=== PATIENT | male | born 1930 | race Caucasian/White ===

== ENCOUNTER 2017-02-25 11:54 | Emergency (ER) | payer MEDICARE, OTHER ==
[~2017-02-25] VITALS: Ht 172.7 cm; Wt 102.5 kg
[~2017-02-25 11:54] MED LIST: ASPI-612 PO; ATOR10TA60 PO; DILT120C PO; DIPH25TA26 PO; DOXA8TAB59 PO; ERGO500027 PO; GLIM4TAB2 PO; Hydrocodone/Acetaminophen PO; INSU100I13 SQ; INSU100V8 SQ; PIOG15TA2 PO; Sulfamethoxazole/Trimethoprim PO; TRIA1CAP3 PO; WARF2TAB7 PO
[2017-02-25 12:11] VITALS: BP 158/77
--- NOTE | 2017-02-25 12:53 | PHYS DOC ---
Past Medical History Past Medical History: A-Fib, Arrhythmia, Diabetes-Type II, High Cholesterol, Hypertension, Other Additional Past Medical Histor: gout; prostate CA Past Surgical History: Pacemaker, Other Additional Past Surgical Histo: Prostate surgery; right ankle Alcohol Use: None Drug Use: None Adult General Chief Complaint Chief Complaint: OTHER COMPLAINTS [facility] HPI Patient is a 87 year old male presents to the emergency department stating that he was scratched by his dog in his left forearm last night. Patient states that he had problems getting the bleeding stopped due to the fact of being on Coumadin. At the current time the area is not bleeding. There is no redness warmth or tenderness noted. Patient is unsure when his last tetanus immunization occurred. Review of Systems Review of Systems Constitutional: Denies fever or chills [] Eyes: Denies change in visual acuity, redness, or eye pain [] HENT: Denies nasal congestion or sore throat [] Respiratory: Denies cough or shortness of breath [] Cardiovascular: No additional information not addressed in HPI [] GI: Denies abdominal pain, nausea, vomiting, bloody stools or diarrhea [] : Denies dysuria or hematuria [] Musculoskeletal: Denies back pain or joint pain [] Integument: Denies rash or skin lesions patient with skin tear noted to the left forearm Neurologic: Denies headache, focal weakness or sensory changes [] Endocrine: Denies polyuria or polydipsia [] Current Medications Current Medications Current Medications Medications (Trade) Dose Ordered Sig/Rhonda Start Time Stop Time Status Last Admin Dose Admin Diphtheria/ Tetanus/Acell Pertussis (Boostrix) 0.5 ml ONCE ONCE 02/25/17 13:30 02/25/17 13:31 Allergies Allergies Allergies Coded Allergies Type Severity Reaction Last Updated Verified No Known Drug Allergies 08/07/13 No Physical Exam Physical Exam Constitutional: Well developed, well nourished, no acute distress, non-toxic appearance. [] HENT: Normocephalic, atraumatic, bilateral external ears normal, oropharynx moist, no oral exudates, nose normal. [] Eyes: PERRLA, EOMI, conjunctiva normal, no discharge. [] Neck: Normal range of motion, no tenderness, supple, no stridor. [] Cardiovascular:Heart rate regular rhythm, no murmur [] Lungs & Thorax: Bilateral breath sounds clear to auscultation [] Skin: Warm, dry, no erythema, no rash. Patient with a skin tear noted to the left forearm bleeding is currently controlled. Back: No tenderness Extremities: No tenderness, no cyanosis, no clubbing, ROM intact, no edema. [] Neurologic: Alert and oriented X 3, normal motor function, normal sensory function, no focal deficits noted. [] Psychologic: Affect normal, judgement normal, mood normal. [] Current Patient Data Vital Signs Vital Signs Date Time Temp Pulse Resp B/P (MAP) Pulse Ox O2 Delivery O2 Flow Rate FiO2 02/25/17 12:11 98.1 71 16 94 Room Air 98.1 Lab Values Laboratory Tests Test 02/25/17 12:48 Prothrombin Time 25.1 SEC (11.7-14.0) H Prothrombin Time INR 2.5 (0.8-1.1) H EKG EKG [] Radiology/Procedures Radiology/Procedures [] Course & Med Decision Making Course & Med Decision Making Pertinent Labs and Imaging studies reviewed. (See chart for details) INR was 2.5, PTT was 25.1. Patient will be discharged home with these results and recommendations to call his primary care physician. Patient will be encouraged to keep the left forearm clean and dry clean it twice daily soap and water and apply antibiotic ointment. Patient was also be encouraged to watch for signs and symptoms of infection: Redness, warmth, tenderness or any yellow/ greenish transient become from the site physician occur he needs to follow-up primary care physician immediately. Patient agrees with discharge instructions treatment regimens and follow-up recommendations. [] Dragon Disclaimer Dragon Disclaimer This electronic medical record was generated, in whole or in part, using a voice recognition dictation system. Departure Departure Impression: Primary Impression: Skin abrasion Disposition: HOME, SELF-CARE Condition: STABLE Referrals: JESSICA GONZALEZ MD (PCP) Patient Instructions: Abrasion, [id number] Additional Instructions: Keep the area clean and dry. Clean the site twice day with soap and water and apply antibiotic ointment to the area. Watch for signs and symptoms of infection: Redness, warmth, tenderness or any yellow/greenish drainage. If this should occur follow-up through primary care physician immediately. Contact your primary care physician or your post doctoral fellow whomever provide you with your Coumadin and let them know that your levels of blood work are PT is 25.1 year INR is 2.5. Follow-up to physicians as needed. Return back to emergency department for signs and symptoms of become worse. JOSIAH MURPHY APRN Feb 25, 2017 12:53
[2017-02-25 13:02] LABS: INR 2.5 (0.8-1.1); PROTHROMBIN TIME PATIENT 25.1 SEC (11.7-14.0)
[2017-02-25] MEDS ORDERED: DIPHTH,PERTUSS(ACELL),TET TOX 0.5 ML DISP.SYRIN. VAX IM ONE (13:30)
== END 2017-02-25 13:37 | disposition home or self-care (01) ==
LOC: ER 11:54
DX: S50.812A Abrasion of left forearm, initial encounter (principal); E11.9 Type 2 diabetes mellitus without complications; E78.00 Pure hypercholesterolemia, unspecified; I10 Essential (primary) hypertension; I48.91 Unspecified atrial fibrillation; M10.9 Gout, unspecified; Z85.46 Personal history of malignant neoplasm of prostate; Z95.0 Presence of cardiac pacemaker; Z98.890 Other specified postprocedural states; W54.0XXA Bitten by dog, initial encounter; Y93.89 Activity, other specified; Y99.8 Other external cause status; Y92.89 Other specified places as the place of occurrence of the external cause
CPT/HCPCS: 36415; 85610; 90471; 90715; 99283-25

== ENCOUNTER 2017-07-30 04:53 | Inpatient (IN) | payer MEDICARE ==
[~2017-07-30] VITALS: Ht 180.3 cm; Wt 101.6 kg
--- NOTE | 2017-07-30 05:29 | PHYS DOC ---
Past Medical History Past Medical History: A-Fib, Arrhythmia, Diabetes-Type II, High Cholesterol, Hypertension, Other Additional Past Medical Histor: gout; prostate CA Past Surgical History: Pacemaker, Other Additional Past Surgical Histo: Prostate surgery; right ankle Alcohol Use: None Drug Use: None Adult General Chief Complaint Chief Complaint: MECHANICAL FALL HPI HPI Patient is a 87 year old gentleman who is a patient of Dr. Montoya, who presents here today secondary to falling and being on the bathroom floor for approximately 7 hours now. Patient has a history significant for atrial fibrillation, CHF, hypertension, hyperlipidemia, chronic renal insufficiency, prostate cancer, insulin requiring diabetes, osteoarthritis, status post AICD/ pacemaker. Patient lives with his . Patient reports he has somewhat come out to her house 3 times a week. 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 Patient reports this evening he got up to go to the bathroom, he attempted to use his walker and he slid down to the ground. Patient denies any head trauma. Patient reports that he landed on his right shoulder very close to the bed when he was walking to the bathroom. Patient reports he had to crawl to the bathroom because he needed to go urinate. Patient reports after he got to the bathroom he was unable to get up to several toilet. Patient reports he ended up laying on the ground in his bathroom and urinated on himself. Patient reports that he screamed multiple times to try to wake his up however he reports she is a very heavy sleeper and she did not wake up until just prior to his arrival here to the ER. Patient denies any head trauma or loss of consciousness pre-or post his fall. Patient denies any dizziness or presyncopal episodes causing him to fall. Patient reports he just felt weak while he was trying to use his walker and he fell to the ground. Patient denies any recent fevers although he reports she's had generalized weakness for several days now. Patient has a nonproductive cough for approximately 3 or 4 days for which she has used Mucinex without any significant relief. Patient denies any other symptomatology. Patient has any sore throat, ear pain, chest pain, shortness of breath, nausea, vomiting, diarrhea, dysuria, frequency, urgency, abdominal pain. Patient reports she does not utilize any nebulizers at home. Patient denies any history of COPD or asthma. Patient denies any history of strokes in the past. Review of systems: Constitutional: Denies fever or chills Eyes: Denies change in visual acuity, redness, or eye pain HENT: Admits to having nasal congestion and cough for several days. All other systems were reviewed and found to be within normal limits, except as documented in this note. Physical exam Constitutional: Well developed, well nourished, no acute distress, non-toxic appearance. HENT: Normocephalic, atraumatic, bilateral external ears normal, oropharynx moist, no oral exudates, nose normal. Eyes: PERRLA, EOMI, conjunctiva normal, no discharge. Neck: Normal range of motion, no tenderness, supple, no stridor. Cardiovascular:Heart rate regular rhythm, Lungs & Thorax: Diffuse inspiratory and expiratory wheezing. Patient appears tachypneic in the ED. Abdomen: Nondistended. Skin: Warm, dry, no erythema, no rash. Back: No tenderness, no CVA tenderness. Extremities: No tenderness, no cyanosis, no clubbing, ROM intact, no edema. Neurologic: Alert and oriented X 3, normal motor function, normal sensory function, no focal deficits noted. Psychologic: Affect normal, judgement normal, mood normal. ER physical exam is significant for: Patient has no C-spine T-spine or L-spine tenderness to palpation. Patient has no evidence of head trauma. Patient is no tenderness to palpation to his left upper or right upper quadrants. Patient has no tenderness palpation to his pelvis. She does pelvis is stable to rock. Patient has no tenderness to his hips with flexion and axial loading of his hip. All long bones and joints palpated and range of motion was performed with outpatient complaining of any discomfort or pain. Patient is alert awake and oriented 3 and appropriate. EKG: Paced rhythm at a heart rate of [address]-T wave abnormalities. No evidence of ST elevation MD. As interpreted by ER physician. no significant change from prior EKG from April 2015. Assessment and plan: 1. This is an 87-year-old gentleman with multiple medical problems including A. fib, CHF, hypertension, renal insufficiency, diabetes who presents to the ER today after being found in the ground for approximately 7 hours. Patient reports that he was attempting to walk to the bathroom with his walker when he fell down and ended up crawling to the bathroom. Patient reports after going to the bathroom he was unable to sit on the toilet and landed on the ground for approximately 7 hours trying to get his to wake up to assist him. Patient is currently without any complaints other than his tachypnea and cough. Patient has no complaints of pain anywhere except for his right shoulder. Plan: Patient will need to have his labs reevaluated for his complaint is generalized weakness. This may be secondary to an infectious process. CBC, CMP, UA, rapid flu, chest x-ray will be obtained. Given that he has been on the ground for 7 hours we will need to evaluate him for rhabdomyolysis and we will check a CPK and his UA for blood. Documentation for Joanna Menon MD 79-year-old male presenting to the emergency department after having generalized weakness and reporting being on the ground for 7 hours. Patient was signed out to me at 6 AM to plan on follow-up on blood work head CT x-rays and reassess the patient. On examination the patient the patient does not have any focal neurologic deficits. He does have wheezing bilaterally in the emergency room. His reports he's been having a cough for the past few days with productive sputum. Blood work reviewed which shows mildly elevated CK. We will trend this to evaluate for potential rhabdomyolysis. The patient received 250 mL of fluid before I saw the patient and I ordered another 500 along with our sepsis order fluids. I gave the patient IV antibiotics for presumed pneumonia though his chest x-ray is clear. I then admitted the patient to the hospital. I admit the patient to Dr. Perez. I have assessed this patient clinically and believe that their condition requires an admission to the hospital. After consulting the admitting physician about this case, they have asked that I admit this patient to their service as an inpatient based on the clinical presentation and my impression. Current Medications Current Medications Current Medications Medications (Trade) Dose Ordered Sig/Rhonda Start Time Stop Time Status Last Admin Dose Admin Albuterol/ Ipratropium (Duoneb) 3 ml 1X ONCE 07/30/17 06:30 07/30/17 06:31 DC 07/30/17 06:18 3 ML Azithromycin 250 ml @ 250 mls/hr 1X ONCE 07/30/17 07:30 12/22/17 08:29 UNV Ceftriaxone Sodium 50 ml @ 100 mls/hr 1X ONCE 07/30/17 07:30 07/30/17 07:59 UNV Morphine Sulfate 2 mg PRN Q2HR PRN 07/30/17 07:30 07/31/17 07:29 UNV Ondansetron HCl (Zofran) 4 mg PRN Q8HRS PRN 07/30/17 07:30 07/31/17 07:29 UNV Sodium Chloride 1,000 ml @ 100 mls/hr Q10H 07/30/17 07:27 07/31/17 07:26 UNV Allergies Allergies Allergies Coded Allergies Type Severity Reaction Last Updated Verified No Known Drug Allergies 08/07/13 No Current Patient Data Vital Signs Vital Signs Date Time Temp Pulse Resp B/P (MAP) Pulse Ox O2 Delivery O2 Flow Rate FiO2 07/30/17 06:17 Nasal Cannula 4.0 07/30/17 06:02 68 20 96 07/30/17 05:00 97.6 198/98 (131) 97.6 Lab Values Laboratory Tests Test 07/30/17 05:25 07/30/17 06:00 White Blood Count 8.2 x10^3/uL (4.0-11.0) Red Blood Count 5.33 x10^6/uL (4.30-5.70) Hemoglobin 15.7 g/dL (13.0-17.5) Hematocrit 47.0 % (39.0-53.0) Mean Corpuscular Volume 88 fL (79-100) Mean Corpuscular Hemoglobin 29 pg (25-35) Mean Corpuscular Hemoglobin Concent 33 g/dL (31-37) Red Cell Distribution Width 15.1 % (11.5-14.5) H Platelet Count 207 x10^3/uL (140-400) Neutrophils (%) (Auto) 75 % (31-73) H Lymphocytes (%) (Auto) 9 % (24-48) L Monocytes (%) (Auto) 16 % (0-9) H Eosinophils (%) (Auto) 0 % (0-3) Basophils (%) (Auto) 1 % (0-3) Neutrophils # (Auto) 6.1 x10^3uL (1.8-7.7) Lymphocytes # (Auto) 0.7 x10^3/uL (1.0-4.8) L Monocytes # (Auto) 1.3 x10^3/uL (0.0-1.1) H Eosinophils # (Auto) 0.0 x10^3/uL (0.0-0.7) Basophils # (Auto) 0.1 x10^3/uL (0.0-0.2) Prothrombin Time 23.6 SEC (11.7-14.0) H Prothrombin Time INR 2.3 (0.8-1.1) H Sodium Level 136 mmol/L (136-145) Potassium Level 3.5 mmol/L (3.5-5.1) Chloride Level 96 mmol/L (98-107) L Carbon Dioxide Level 29 mmol/L (21-32) Anion Gap 11 (6-14) Blood Urea Nitrogen 35 mg/dL (8-26) H Creatinine 1.8 mg/dL (0.7-1.3) H Estimated GFR (Cockcroft-Gault) 35.8 BUN/Creatinine Ratio 19 (6-20) Glucose Level 318 mg/dL (70-99) H Lactic Acid Level 2.7 mmol/L (0.4-2.0) H Calcium Level 9.8 mg/dL (8.5-10.1) Total Bilirubin 0.8 mg/dL (0.2-1.0) Aspartate Amino Transferase (AST) 38 U/L (15-37) H Alanine Aminotransferase (ALT) 35 U/L (16-63) Alkaline Phosphatase 61 U/L (46-116) Creatine Kinase 698 U/L (39-308) H Troponin I Quantitative 0.026 ng/mL (0.000-0.055) Total Protein 7.4 g/dL (6.4-8.2) Albumin 3.0 g/dL (3.4-5.0) L Albumin/Globulin Ratio 0.7 (1.0-1.7) L Urine Collection Type Unknown Urine Color Yellow Urine Clarity Clear Urine pH 6.0 Urine Specific [place] 1.025 Urine Protein 100 mg/dL (NEG-TRACE) Urine Glucose (UA) >=1000 mg/dL (NEG) Urine Ketones (Stick) Negative mg/dL (NEG) Urine Blood Large (NEG) Urine Nitrite Negative (NEG) Urine Bilirubin Negative (NEG) Urine Urobilinogen Dipstick 0.2 mg/dL (0.2 mg/dL) Urine Leukocyte Esterase Negative (NEG) Urine RBC 3-5 /HPF (0-2) Urine WBC Occ /HPF (0-4) Urine Squamous Epithelial Cells Occ /LPF Urine Amorphous Sediment Present /HPF Urine Bacteria 0 /HPF (0-FEW) Urine Hyaline Casts Occasional /HPF Urine Mucus Slight /LPF Laboratory Tests 07/30/17 05:25 Laboratory Tests 07/30/17 05:25 EKG EKG [] Radiology/Procedures Radiology/Procedures [] Course & Med Decision Making Course & Med Decision Making Pertinent Labs and Imaging studies reviewed. (See chart for details) [] Dragon Disclaimer Dragon Disclaimer This electronic medical record was generated, in whole or in part, using a voice recognition dictation system. Departure Departure Impression: Primary Impression: Weakness Additional Impressions: PNA (pneumonia) Elevated CK Disposition: ADMITTED INPATIENT Admitting Physician: Lyubov Perez Condition: STABLE Referrals: JESSICA GONZALEZ MD (PCP) Problem Qualifiers IDA DEL ROSARIO MD Jul 30, 2017 05:29 JOANNA MENON MD Jul 30, 2017 07:45
--- NOTE | 2017-07-30 05:49 | EKG ---
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
[2017-07-30 05:55] LABS: BASO # 0.1 x10^3/uL (0.0-0.2); BASO % 1 % (0-3); EOS % 0 % (0-3); HEMOGLOBIN 15.7 g/dL (13.0-17.5); LYMPH # 0.7 x10^3/uL (1.0-4.8); LYMPH % 9 % (24-48); MEAN CORPUSCULAR HEMOGLOBIN 29 pg (25-35); MEAN CORPUSCULAR HGB CONC 33 g/dL (31-37); MEAN CORPUSCULAR VOLUME 88 fL (79-100); MONO % 16 % (0-9); NEUT % 75 % (31-73); PLATELET COUNT 207 x10^3/uL (140-400); RED BLOOD COUNT 5.33 x10^6/uL (4.30-5.70); RED CELL DISTRIBUTION WIDTH 15.1 % (11.5-14.5); WHITE BLOOD COUNT 8.2 x10^3/uL (4.0-11.0)
[2017-07-30] MEDS ORDERED: IV NORMAL SALINE 250ML 250 ML IV ONE (06:00)
[2017-07-30 06:06] LABS: CALCIUM 9.8 mg/dL (8.5-10.1); CREATININE 1.8 mg/dL (0.7-1.3); GFR 35.8; POTASSIUM 3.5 mmol/L (3.5-5.1)
[2017-07-30 06:13] LABS: ALBUMIN/GLOBULIN RATIO 0.7 (1.0-1.7); TOTAL BILIRUBIN 0.8 mg/dL (0.2-1.0); TOTAL PROTEIN 7.4 g/dL (6.4-8.2)
[2017-07-30 06:17] LABS: INR 2.3 (0.8-1.1); PROTHROMBIN TIME PATIENT 23.6 SEC (11.7-14.0)
[2017-07-30] MEDS ORDERED: IPRATRPIUM/ALBUTEROL 0.5/2.5MG 3 ML NEBU. NEB ONE (06:30)
[2017-07-30 06:37] LABS: BILIRUBIN,URINE NEGATIVE (NEG); GLUCOSE,URINE >=1000 mg/dL (NEG); PROTEIN,URINE 100 mg/dL (NEG-TRACE)
[2017-07-30 06:38] LABS: NITRITE,URINE NEGATIVE (NEG); UROBILINOGEN,URINE 0.2 mg/dL (0.2 mg/dL)
[2017-07-30 06:42] LABS: SQUAMOUS EPITHELIAL CELL,UR OCC /LPF
[2017-07-30 06:43] LABS: BACTERIA,URINE 0 /HPF (0-FEW); WBC,URINE OCC /HPF (0-4)
--- NOTE | 2017-07-30 06:59 | RAD ---
EXAM: CT HEAD WITHOUT CONTRAST. HISTORY: Fall, prostate cancer. TECHNIQUE: Computed tomography of the head was performed without intravenous contrast. COMPARISON: May 08, 2015. FINDINGS: There is no intracranial hemorrhage. There is a chronic infarct in the right occipital lobe. There is moderate to severe chronic microangiopathic white matter change elsewhere. Prominence of the lateral ventricles and hemispheric sulci indicates moderate atrophy. There are small air-fluid levels in the maxillary sinuses. There is an mucus retention cyst on the right. There are changes of bilateral cataract surgery. The temporal bones are unremarkable. The calvarium reveals no suspicious lesions. There are atherosclerotic calcifications of the internal carotid and vertebral arteries. IMPRESSION: 1. No acute intracranial findings. 2. Chronic right occipital infarct. Moderate atrophy and chronic microangiopathic white matter change. *One or more of the following individualized dose reduction techniques were utilized for this examination: 1. Automated exposure control. 2. Adjustment of the mA and/or kV according to patient size. 3. Use of iterative reconstruction technique. Electronically signed by: Panfilo Schneider MD (07/30/2017 6:55 AM) [facility]
--- NOTE | 2017-07-30 07:06 | RAD ---
Indication: Fall, right shoulder pain. Time of exam 0632 hours. 2 views of the right shoulder demonstrate normal glenohumeral and acromioclavicular alignment. The acromiohumeral space is normal. No fracture or dislocation is seen. Impression: No acute bony abnormality is detected.
--- NOTE | 2017-07-30 07:07 | RAD ---
Indication: Shortness of breath. Time of exam 0540 hours. Correlation is made with prior study from 05/06/2015. The heart size is stable. Single lead left subclavian cardiac pacemaker remains in place. The lungs are clear. No infiltrate or failure is detected. No effusion or pneumothorax is seen. Impression: Stable chest. No acute feature is detected.
[2017-07-30] MEDS ORDERED: IV NORMAL SALINE 1000ML BAG 1,000 ML IV SCH (07:27)
[2017-07-30] MEDS ORDERED: IV NORMAL SALINE 500ML BAG 500 ML IV ONE (07:30)
[2017-07-30] MEDS ORDERED: MORPHINE SULFATE 2 MG/ML DISP.SYRIN. IV PRN (07:30)
[2017-07-30] MEDS ORDERED: ONDANSETRON PF 4 MG/2 ML VIAL. IV PRN (07:30)
[2017-07-30] MEDS ORDERED: AZITHRMYCN 500MG IVPB FOR OMNI 250 ML IV ONE (07:30)
[2017-07-30 08:02] LABS: OBC FLU VALID
[2017-07-30] MEDS: IV NORMAL SALINE 1000ML BAG 1,000 ML IV SCH ×3 (08:05→17:47)
[2017-07-30] MEDS ORDERED: OSELTAMIVIR 75 MG CAPSULE PO ONE (08:15)
[2017-07-30] MEDS ORDERED: ALLO300T PO (10:36)
[2017-07-30] MEDS ORDERED: FURO80TA3 PO (10:36)
[2017-07-30] MEDS ORDERED: INSU100I13 SQ (10:36)
[2017-07-30] MEDS ORDERED: WARF3TAB7 PO (10:36)
[2017-07-30] MEDS ORDERED: METO-239 PO (10:36)
[2017-07-30] MEDS ORDERED: ATOR10TA60 PO (10:36)
[2017-07-30] MEDS ORDERED: AMLO10TA2 PO (10:36)
[2017-07-30] MEDS ORDERED: DEXTROSE 50% 25 GM / 50ML DISP.SYRIN. IV PRN (10:45)
[2017-07-30] MEDS ORDERED: ACETAMINOPHEN 500 MG TABLET PO PRN (10:45)
--- NOTE | 2017-07-30 10:51 | PDOC1 ---
History and Physical Date of Admission Date of Admission DATE: 07/30/17 TIME: 10:43 Identification/Chief Complaint Chief Complaint Found on the ground, crawling for X amount of hours; feeling sick as a dog 2 days Problems: Source Source: Caregiver, Chart review, Patient History of Present Illness History of Present Illness A pleasant 87-year-old male initially accompanied by the daughter but now is alone in the room. Comes in because was found on the ground for an unknown prd of times, no urinary or fecal incontinence, no syncope, no LOC on sz like acitvity. The patient does admit to feeling sick for the past 2 days mainly URI symptoms with myalgias and arthralgias. NO temp. Initially the workup was positive for rhabdomyolysis with a CK of 687 and elevated lactate 2.7 with blood in the urine but RBC is only 3-5. Which essentially supports rhabdomyolysis. But on further workup chest x-ray negative. UA does not show no signs of UTI. White count is normal at 8.2 but did test positive for influenza A. Patient got Tamiflu 1 at the emergency room. Patient eating GI soft diet, no vomiting/emesis. Looks well. Patient is a diabetic and BPH and maybe chronic lymphedema on Lasix 80 at home, and also high doses of insulin. I am comfortable upgrading to diabetic diet and restarting his home medications but to hold the statin and his metformin, given secondary to rhabdo and creatinine of 1.8, respectively . I would hold the Lasix for now since we are hydrating. But I would not do the whole sepsis protocol of 150 mL an hour on this gentleman who is on Lasix 80 at home. HIs Rhabdo is rather mild with a CK of 687. I will do continue the IV fluid started at ER but after this, nothing more to follow. I will continue Tamiflu 75 BID since he is in the window for treatment of flu. Case discussed with EVIE Wood. His albumin is mildly low at 3.0. We'll recheck lactate tomorrow. I'll monitor the creatinine of 1.8 but likely will come down with IV fluid. Also history of CK D. Further conditions pending above course Past Medical History Cardiovascular: AFIB, CHF, HTN, Hyperlipidemia Pulmonary: No pertinent hx GI: No pertinent hx Heme/Onc: Cancer Hepatobiliary: No pertinent hx Psych: No pertinent hx Musculoskeletal: Osteoarthritis, Weakness, Swelling Rheumatologic: No pertinent hx Infectious disease: No pertinent hx Renal/: Chronic renal insuff, Prostate Ca. Endocrine: Diabetes Past Surgical History Past Surgical History: Pacemaker, Other Family History Family History: No Significant Social History Smoke: No ALCOHOL: none Drugs: None Current Problem List Problem List Problems Medical Problems: (1) Elevated CK Status: Acute (2) PNA (pneumonia) Status: Acute (3) Weakness Status: Acute Problems: Current Medications Current Medications Current Medications Sodium Chloride 250 ml @ 250 mls/hr 1X ONCE IV Last administered on 06:00; Start 07/30/17 at 06:00; Stop 07/30/17 at 06:59; Status DC Albuterol/ Ipratropium (Duoneb) 3 ml 1X ONCE NEB Last administered on 06:18; Start 07/30/17 at 06:30; Stop 07/30/17 at 06:31; Status DC Sodium Chloride 500 ml @ 500 mls/hr 1X ONCE IV ; Start 07/30/17 at 07:30; Stop 07/30/17 at 07:45; Status DC Sodium Chloride 1,000 ml @ 125 mls/hr Q8H IV Last administered on 07/30/17 08:05; Start 07/30/17 at 07:27; Stop 07/30/17 at 19:46 Azithromycin 250 ml @ 250 mls/hr 1X ONCE IV Last administered on 07/30/17 09:28; Start 07/30/17 at 07:30; Stop 07/30/17 at 08:29; Status DC Ceftriaxone Sodium 50 ml @ 100 mls/hr 1X ONCE IV Last administered on 08:04; Start 07/30/17 at 07:30; Stop 07/30/17 at 07:59; Status DC Ondansetron HCl (Zofran) 4 mg PRN Q8HRS PRN IV NAUSEA/VOMITING; Start at 07:30; Stop 07/31/17 at 07:29 Morphine Sulfate 2 mg PRN Q2HR PRN IV PAIN; Start 07/30/17 at 07:30; Stop at 07:29 Sodium Chloride 1,000 ml @ 100 mls/hr Q10H IV ; Start 07/30/17 at 07:27; Stop 07/30/17 at 07:45; Status DC Oseltamivir Phosphate (Tamiflu) 75 mg 1X ONCE PO Last administered on t 08:12; Start 07/30/17 at 08:15; Stop 07/30/17 at 08:16; Status DC Acetaminophen (Tylenol) 500 mg PRN Q6HRS PRN PO MILD PAIN / TEMP; Start at 10:45 Oseltamivir Phosphate (Tamiflu) 30 mg BID PO ; Start 07/30/17 at 11:00; Stop 08/04/17 at 10:59 Insulin Aspart (NovoLOG) 0-9 UNITS TIDWMEALS SQ ; Start 07/30/17 at 12:00 Dextrose (Dextrose 50%-Water Syringe) 12.5 gm PRN Q15MIN PRN IV SEE COMMENTS; Start 07/30/17 at 10:45 Oseltamivir Phosphate (Tamiflu) 30 mg BID PO ; Start 07/30/17 at 21:00; Stop 08/03/17 at 21:01 Active Scripts Active Reported Metoprolol Succinate ( Xl ) (Metoprolol Succinate) 25 Mg Tab.er.24h 1 Tab PO DAILY Furosemide 80 Mg Tablet 1 Tab PO DAILY Atorvastatin Calcium 10 Mg Tablet 10 Mg PO HS Warfarin Sodium 3 Mg Tablet 1 Tab PO DAILY Amlodipine Besylate 10 Mg Tablet 10 Mg PO DAILY Allopurinol 300 Mg Tablet 1 Tab PO DAILY Lantus Solostar (Insulin Glargine,Hum.rec.anlog) 100 Unit/1 Ml Insuln.pen 80 Unit SQ DAILY Doxazosin Mesylate 8 Mg Tablet 8 Mg PO Aspirin Ec (Aspirin) 81 Mg Tablet.dr 81 Mg PO Atorvastatin Calcium 10 Mg Tablet 10 Mg PO Allergies Allergies: Coded Allergies: No Known Drug Allergies (Unverified , 08/07/13) ROS Review of System Positive for myalgias arthralgias, dry cough, runny nose sometimes, no chest pain, no shortness of breath, no phlegm, the rest of review of systems 14 point review negative Physical Exam General: Alert, Oriented X3, Cooperative, No acute distress HEENT: Atraumatic, PERRLA, EOMI Lungs: Clear to auscultation, Normal air movement Heart: S1S2, RRR, no thrills, no rubs, no gallops, no murmurs Cardiovascular: S1, S2 Breasts: Normal, Rt breast nml w/o mass, Lt breast nml w/o mass, Nipples normal Abdomen: Normal bowel sounds, Soft, No tenderness, No hepatosplenomegaly, No masses Male Genitals Exam: normal genitalia, normal prostate Rectal Exam: not examined PELVIC: Nml ext genitalia Extremities: No clubbing, No cyanosis, No edema, Normal pulses, No tenderness/ swelling Skin: No rashes, No breakdown, No significant lesion Neuro: Normal gait, Normal speech, Strength at 5/5 X4 ext, Normal tone, Sensation intact, Cranial nerves 3-12 NL, Reflexes 2+ Psych/Mental Status: Mental status NL, Mood NL Vitals Vitals Vital Signs Date Time Temp Pulse Resp B/P (MAP) Pulse Ox O2 Delivery O2 Flow Rate FiO2 07/30/17 06:17 Nasal Cannula 4.0 07/30/17 06:02 68 20 96 07/30/17 05:00 97.6 198/98 (131) 97.6 Labs Labs Laboratory Tests Test 07/30/17 05:25 07/30/17 06:00 07/30/17 07:10 07/30/17 08:20 White Blood Count 8.2 x10^3/uL (4.0-11.0) Red Blood Count 5.33 x10^6/uL (4.30-5.70) Hemoglobin 15.7 g/dL (13.0-17.5) Hematocrit 47.0 % (39.0-53.0) Mean Corpuscular Volume 88 fL (79-100) Mean Corpuscular Hemoglobin 29 pg (25-35) Mean Corpuscular Hemoglobin Concent 33 g/dL (31-37) Red Cell Distribution Width 15.1 % (11.5-14.5) Platelet Count 207 x10^3/uL (140-400) Neutrophils (%) (Auto) 75 % (31-73) Lymphocytes (%) (Auto) 9 % (24-48) Monocytes (%) (Auto) 16 % (0-9) Eosinophils (%) (Auto) 0 % (0-3) Basophils (%) (Auto) 1 % (0-3) Neutrophils # (Auto) 6.1 x10^3uL (1.8-7.7) Lymphocytes # (Auto) 0.7 x10^3/uL (1.0-4.8) Monocytes # (Auto) 1.3 x10^3/uL (0.0-1.1) Eosinophils # (Auto) 0.0 x10^3/uL (0.0-0.7) Basophils # (Auto) 0.1 x10^3/uL (0.0-0.2) Prothrombin Time 23.6 SEC (11.7-14.0) Prothromb Time International Ratio 2.3 (0.8-1.1) Sodium Level 136 mmol/L (136-145) Potassium Level 3.5 mmol/L (3.5-5.1) Chloride Level 96 mmol/L (98-107) Carbon Dioxide Level 29 mmol/L (21-32) Anion Gap 11 (6-14) Blood Urea Nitrogen 35 mg/dL (8-26) Creatinine 1.8 mg/dL (0.7-1.3) Estimated GFR (Cockcroft-Gault) 35.8 BUN/Creatinine Ratio 19 (6-20) Glucose Level 318 mg/dL (70-99) Lactic Acid Level 2.7 mmol/L (0.4-2.0) Calcium Level 9.8 mg/dL (8.5-10.1) Total Bilirubin 0.8 mg/dL (0.2-1.0) Aspartate Amino Transf (AST/SGOT) 38 U/L (15-37) Alanine Aminotransferase (ALT/SGPT) 35 U/L (16-63) Alkaline Phosphatase 61 U/L (46-116) Creatine Kinase 698 U/L (39-308) 687 U/L (39-308) Troponin I Quantitative 0.026 ng/mL (0.000-0.055) Total Protein 7.4 g/dL (6.4-8.2) Albumin 3.0 g/dL (3.4-5.0) Albumin/Globulin Ratio 0.7 (1.0-1.7) Urine Collection Type Unknown Urine Color Yellow Urine Clarity Clear Urine pH 6.0 Urine Specific [place] 1.025 Urine Protein 100 mg/dL (NEG-TRACE) Urine Glucose (UA) >=1000 mg/dL (NEG) Urine Ketones (Stick) Negative mg/dL (NEG) Urine Blood Large (NEG) Urine Nitrite Negative (NEG) Urine Bilirubin Negative (NEG) Urine Urobilinogen Dipstick 0.2 mg/dL (0.2 mg/dL) Urine Leukocyte Esterase Negative (NEG) Urine RBC 3-5 /HPF (0-2) Urine WBC Occ /HPF (0-4) Urine Squamous Epithelial Cells Occ /LPF Urine Amorphous Sediment Present /HPF Urine Bacteria 0 /HPF (0-FEW) Urine Hyaline Casts Occasional /HPF Urine Mucus Slight /LPF Influenza Type A Antigen Positive (NEGATIVE) Influenza Type B Antigen Negative (NEGATIVE) DA-Dro-U-Type Natriuretic Peptide 2800 pg/mL (0-449) Test 07/30/17 10:00 Creatine Kinase 644 U/L (39-308) Laboratory Tests Test 07/30/17 05:25 07/30/17 06:00 07/30/17 07:10 07/30/17 08:20 White Blood Count 8.2 x10^3/uL (4.0-11.0) Red Blood Count 5.33 x10^6/uL (4.30-5.70) Hemoglobin 15.7 g/dL (13.0-17.5) Hematocrit 47.0 % (39.0-53.0) Mean Corpuscular Volume 88 fL (79-100) Mean Corpuscular Hemoglobin 29 pg (25-35) Mean Corpuscular Hemoglobin Concent 33 g/dL (31-37) Red Cell Distribution Width 15.1 % (11.5-14.5) Platelet Count 207 x10^3/uL (140-400) Neutrophils (%) (Auto) 75 % (31-73) Lymphocytes (%) (Auto) 9 % (24-48) Monocytes (%) (Auto) 16 % (0-9) Eosinophils (%) (Auto) 0 % (0-3) Basophils (%) (Auto) 1 % (0-3) Neutrophils # (Auto) 6.1 x10^3uL (1.8-7.7) Lymphocytes # (Auto) 0.7 x10^3/uL (1.0-4.8) Monocytes # (Auto) 1.3 x10^3/uL (0.0-1.1) Eosinophils # (Auto) 0.0 x10^3/uL (0.0-0.7) Basophils # (Auto) 0.1 x10^3/uL (0.0-0.2) Prothrombin Time 23.6 SEC (11.7-14.0) Prothromb Time International Ratio 2.3 (0.8-1.1) Sodium Level 136 mmol/L (136-145) Potassium Level 3.5 mmol/L (3.5-5.1) Chloride Level 96 mmol/L (98-107) Carbon Dioxide Level 29 mmol/L (21-32) Anion Gap 11 (6-14) Blood Urea Nitrogen 35 mg/dL (8-26) Creatinine 1.8 mg/dL (0.7-1.3) Estimated GFR (Cockcroft-Gault) 35.8 BUN/Creatinine Ratio 19 (6-20) Glucose Level 318 mg/dL (70-99) Lactic Acid Level 2.7 mmol/L (0.4-2.0) Calcium Level 9.8 mg/dL (8.5-10.1) Total Bilirubin 0.8 mg/dL (0.2-1.0) Aspartate Amino Transf (AST/SGOT) 38 U/L (15-37) Alanine Aminotransferase (ALT/SGPT) 35 U/L (16-63) Alkaline Phosphatase 61 U/L (46-116) Creatine Kinase 698 U/L (39-308) 687 U/L (39-308) Troponin I Quantitative 0.026 ng/mL (0.000-0.055) Total Protein 7.4 g/dL (6.4-8.2) Albumin 3.0 g/dL (3.4-5.0) Albumin/Globulin Ratio 0.7 (1.0-1.7) Urine Collection Type Unknown Urine Color Yellow Urine Clarity Clear Urine pH 6.0 Urine Specific [place] 1.025 Urine Protein 100 mg/dL (NEG-TRACE) Urine Glucose (UA) >=1000 mg/dL (NEG) Urine Ketones (Stick) Negative mg/dL (NEG) Urine Blood Large (NEG) Urine Nitrite Negative (NEG) Urine Bilirubin Negative (NEG) Urine Urobilinogen Dipstick 0.2 mg/dL (0.2 mg/dL) Urine Leukocyte Esterase Negative (NEG) Urine RBC 3-5 /HPF (0-2) Urine WBC Occ /HPF (0-4) Urine Squamous Epithelial Cells Occ /LPF Urine Amorphous Sediment Present /HPF Urine Bacteria 0 /HPF (0-FEW) Urine Hyaline Casts Occasional /HPF Urine Mucus Slight /LPF Influenza Type A Antigen Positive (NEGATIVE) Influenza Type B Antigen Negative (NEGATIVE) PI-Whj-O-Type Natriuretic Peptide 2800 pg/mL (0-449) Test 07/30/17 10:00 Creatine Kinase 644 U/L (39-308) VTE Prophylaxis Ordered VTE Prophylaxis Devices: Yes VTE Pharmacological Prophylaxi: Yes Assessment/Plan Assessment/Plan Assessment Mild rhabdomyolysis CPK of 687 Influenza A positive 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 fib, hypertension, CAD, CHF on Lasix 80 once a day - all chronic stable Negative chest x-ray Plan: Admit 2 MN PT OT, Tamiflu 75 by mouth twice a day Current IVF to consume. Recheck lactate and labs tomorrow Would not over hydrate this gentleman with history of CHF on Lasix 80 once a day Okay to ADA diet Sliding scale insulin high-dose Will discharge on Tamiflu once feeling better could be tomorrow or in 48 hours Discussed with JESÚS Rivas MD Jul 30, 2017 10:51
[2017-07-30 11:00] VITALS: BP 136/69
[2017-07-30] MEDS ORDERED: OSELTAMIVIR 30 MG CAPSULE PO SCH (11:00)
[2017-07-30 11:01] VITALS: BP 150/75
[2017-07-30] MEDS: METOPROLOL SUCC 24HR ER 25 MG TAB.ER.24H. PO SCH (12:09)
[2017-07-30] MEDS: ASPIRIN ENTERIC COATED 81 MG TABLET.DR. PO SCH (12:09)
[2017-07-30] MEDS: ALLOPURINOL 300 MG TABLET. PO SCH (12:10)
[2017-07-30] MEDS: amLODIPine BESYLATE 10 MG TABLET PO SCH (12:10)
[2017-07-30] MEDS: DOXAZOSIN MESYLATE 4 MG TABLET. PO SCH (12:11)
[2017-07-30] MEDS: INSULIN ASPART 300 UNITS/3 ML INSULN.PEN SQ SCH ×2 (12:19→17:00)
[2017-07-30] MEDS: INSULIN DETEMIR 300 UNITS/3 ML INSULN.PEN. SQ SCH (12:20)
[2017-07-30 14:56] VITALS: BP 140/65
[2017-07-30 19:59] VITALS: BP 133/63
[2017-07-30] MEDS: OSELTAMIVIR 30 MG CAPSULE PO SCH (20:17)
[2017-07-30 23:14] VITALS: BP 133/64
[2017-07-31 03:59] VITALS: BP 145/78
[2017-07-31 07:40] VITALS: BP 127/66
[2017-07-31] MEDS: INSULIN ASPART 300 UNITS/3 ML INSULN.PEN SQ SCH ×3 (07:55→16:58)
[2017-07-31] MEDS: DOXAZOSIN MESYLATE 4 MG TABLET. PO SCH (09:14)
[2017-07-31] MEDS: ASPIRIN ENTERIC COATED 81 MG TABLET.DR. PO SCH (09:14)
[2017-07-31] MEDS: METOPROLOL SUCC 24HR ER 25 MG TAB.ER.24H. PO SCH (09:15)
[2017-07-31] MEDS: OSELTAMIVIR 30 MG CAPSULE PO SCH ×2 (09:15→20:17)
[2017-07-31] MEDS: ALLOPURINOL 300 MG TABLET. PO SCH (09:15)
[2017-07-31] MEDS: amLODIPine BESYLATE 10 MG TABLET PO SCH (09:15)
[2017-07-31] MEDS: INSULIN DETEMIR 300 UNITS/3 ML INSULN.PEN. SQ SCH (09:24)
--- NOTE | 2017-07-31 10:30 | PDOC ---
PROGRESS NOTES Chief Complaint Chief Complaint Influenza Type A + COPD Rhabdomyolysis DM2 History of Present Illness History of Present Illness Patient was sitting comfortably upon presentation and under droplet precautions for influenza which was positive on serology. Continue tamiflu, and supportive care. Vitals Vitals Vital Signs Date Time Temp Pulse Resp B/P (MAP) Pulse Ox O2 Delivery O2 Flow Rate FiO2 07/31/17 09:15 81 127/66 07/31/17 07:40 97.7 22 95 Nasal Cannula 4.0 97.7 Physical Exam General: Alert, Oriented X3, Cooperative, No acute distress Heart: Regular rate, No murmurs Abdomen: Normal bowel sounds, Soft, No tenderness, No hepatosplenomegaly, No masses Extremities: No clubbing, No cyanosis, No edema, Normal pulses, No tenderness/ swelling Skin: No rashes, No breakdown, No significant lesion Labs LABS Laboratory Tests Test 07/30/17 11:25 07/30/17 11:57 07/30/17 16:14 07/30/17 17:25 Lactic Acid Level 2.4 mmol/L (0.4-2.0) 1.6 mmol/L (0.4-2.0) Creatine Kinase 518 U/L (39-308) Glucose (Fingerstick) 356 mg/dL (70-99) 186 mg/dL (70-99) Test 07/30/17 21:00 07/31/17 07:08 Glucose (Fingerstick) 111 mg/dL (70-99) 75 mg/dL (70-99) Review of Systems Review of Systems Patient reports weakness Patient reports fatigue Assessment and Plan Assessmemt and Plan Problems Medical Problems: (1) Elevated CK Status: Acute (2) PNA (pneumonia) Status: Acute (3) Weakness Status: Acute Assessment: Influenza Type A + COPD Rhabdomyolysis DM2 Plan: Tamiflu Droplet precautions IV fluids Home meds PT/OT Consult ID Problems: Comment Review of Relevant I have reviewed the following items kari (where applicable) has been applied. Labs Laboratory Tests Test 07/30/17 05:25 07/30/17 06:00 07/30/17 07:10 07/30/17 08:20 White Blood Count 8.2 x10^3/uL (4.0-11.0) Red Blood Count 5.33 x10^6/uL (4.30-5.70) Hemoglobin 15.7 g/dL (13.0-17.5) Hematocrit 47.0 % (39.0-53.0) Mean Corpuscular Volume 88 fL (79-100) Mean Corpuscular Hemoglobin 29 pg (25-35) Mean Corpuscular Hemoglobin Concent 33 g/dL (31-37) Red Cell Distribution Width 15.1 % (11.5-14.5) Platelet Count 207 x10^3/uL (140-400) Neutrophils (%) (Auto) 75 % (31-73) Lymphocytes (%) (Auto) 9 % (24-48) Monocytes (%) (Auto) 16 % (0-9) Eosinophils (%) (Auto) 0 % (0-3) Basophils (%) (Auto) 1 % (0-3) Neutrophils # (Auto) 6.1 x10^3uL (1.8-7.7) Lymphocytes # (Auto) 0.7 x10^3/uL (1.0-4.8) Monocytes # (Auto) 1.3 x10^3/uL (0.0-1.1) Eosinophils # (Auto) 0.0 x10^3/uL (0.0-0.7) Basophils # (Auto) 0.1 x10^3/uL (0.0-0.2) Prothrombin Time 23.6 SEC (11.7-14.0) Prothromb Time International Ratio 2.3 (0.8-1.1) Sodium Level 136 mmol/L (136-145) Potassium Level 3.5 mmol/L (3.5-5.1) Chloride Level 96 mmol/L (98-107) Carbon Dioxide Level 29 mmol/L (21-32) Anion Gap 11 (6-14) Blood Urea Nitrogen 35 mg/dL (8-26) Creatinine 1.8 mg/dL (0.7-1.3) Estimated GFR (Cockcroft-Gault) 35.8 BUN/Creatinine Ratio 19 (6-20) Glucose Level 318 mg/dL (70-99) Lactic Acid Level 2.7 mmol/L (0.4-2.0) Calcium Level 9.8 mg/dL (8.5-10.1) Total Bilirubin 0.8 mg/dL (0.2-1.0) Aspartate Amino Transf (AST/SGOT) 38 U/L (15-37) Alanine Aminotransferase (ALT/SGPT) 35 U/L (16-63) Alkaline Phosphatase 61 U/L (46-116) Creatine Kinase 698 U/L (39-308) 687 U/L (39-308) Troponin I Quantitative 0.026 ng/mL (0.000-0.055) Total Protein 7.4 g/dL (6.4-8.2) Albumin 3.0 g/dL (3.4-5.0) Albumin/Globulin Ratio 0.7 (1.0-1.7) Urine Collection Type Unknown Urine Color Yellow Urine Clarity Clear Urine pH 6.0 Urine Specific [place] 1.025 Urine Protein 100 mg/dL (NEG-TRACE) Urine Glucose (UA) >=1000 mg/dL (NEG) Urine Ketones (Stick) Negative mg/dL (NEG) Urine Blood Large (NEG) Urine Nitrite Negative (NEG) Urine Bilirubin Negative (NEG) Urine Urobilinogen Dipstick 0.2 mg/dL (0.2 mg/dL) Urine Leukocyte Esterase Negative (NEG) Urine RBC 3-5 /HPF (0-2) Urine WBC Occ /HPF (0-4) Urine Squamous Epithelial Cells Occ /LPF Urine Amorphous Sediment Present /HPF Urine Bacteria 0 /HPF (0-FEW) Urine Hyaline Casts Occasional /HPF Urine Mucus Slight /LPF Influenza Type A Antigen Positive (NEGATIVE) Influenza Type B Antigen Negative (NEGATIVE) UM-Dsh-X-Type Natriuretic Peptide 2800 pg/mL (0-449) Test 07/30/17 10:00 07/30/17 11:25 07/30/17 11:57 07/30/17 16:14 Creatine Kinase 644 U/L (39-308) 518 U/L (39-308) Lactic Acid Level 2.4 mmol/L (0.4-2.0) Glucose (Fingerstick) 356 mg/dL (70-99) 186 mg/dL (70-99) Test 07/30/17 17:25 07/30/17 21:00 07/31/17 07:08 Lactic Acid Level 1.6 mmol/L (0.4-2.0) Glucose (Fingerstick) 111 mg/dL (70-99) 75 mg/dL (70-99) Laboratory Tests Test 07/30/17 11:25 07/30/17 11:57 07/30/17 16:14 07/30/17 17:25 Lactic Acid Level 2.4 mmol/L (0.4-2.0) 1.6 mmol/L (0.4-2.0) Creatine Kinase 518 U/L (39-308) Glucose (Fingerstick) 356 mg/dL (70-99) 186 mg/dL (70-99) Test 07/30/17 21:00 07/31/17 07:08 Glucose (Fingerstick) 111 mg/dL (70-99) 75 mg/dL (70-99) Microbiology 07/30/17 Blood Culture - Preliminary, Resulted NO GROWTH AFTER 1 DAY Medications Current Medications Sodium Chloride 250 ml @ 250 mls/hr 1X ONCE IV Last administered on 06:00; Start 07/30/17 at 06:00; Stop 07/30/17 at 06:59; Status DC Albuterol/ Ipratropium (Duoneb) 3 ml 1X ONCE NEB Last administered on 06:18; Start 07/30/17 at 06:30; Stop 07/30/17 at 06:31; Status DC Sodium Chloride 500 ml @ 500 mls/hr 1X ONCE IV ; Start 07/30/17 at 07:30; Stop 07/30/17 at 07:45; Status DC Sodium Chloride 1,000 ml @ 125 mls/hr Q8H IV Last administered on 07/30/17 08:05; Start 07/30/17 at 07:27; Stop 07/30/17 at 19:46; Status DC Azithromycin 250 ml @ 250 mls/hr 1X ONCE IV Last administered on 07/30/17 09:28; Start 07/30/17 at 07:30; Stop 07/30/17 at 08:29; Status DC Ceftriaxone Sodium 50 ml @ 100 mls/hr 1X ONCE IV Last administered on 08:04; Start 07/30/17 at 07:30; Stop 07/30/17 at 07:59; Status DC Ondansetron HCl (Zofran) 4 mg PRN Q8HRS PRN IV NAUSEA/VOMITING; Start at 07:30; Stop 07/31/17 at 07:29; Status DC Morphine Sulfate 2 mg PRN Q2HR PRN IV PAIN; Start 07/30/17 at 07:30; Stop at 07:29; Status DC Sodium Chloride 1,000 ml @ 100 mls/hr Q10H IV ; Start 07/30/17 at 07:27; Stop 07/30/17 at 07:45; Status DC Oseltamivir Phosphate (Tamiflu) 75 mg 1X ONCE PO Last administered on 08:12; Start 07/30/17 at 08:15; Stop 07/30/17 at 08:16; Status DC Acetaminophen (Tylenol) 500 mg PRN Q6HRS PRN PO MILD PAIN / TEMP; Start at 10:45 Oseltamivir Phosphate (Tamiflu) 30 mg BID PO ; Start 07/30/17 at 11:00; Stop 08/04/17 at 10:59; Status Cancel Insulin Aspart (NovoLOG) 0-9 UNITS TIDWMEALS SQ Last administered on 12:19; Start 07/30/17 at 12:00 Dextrose (Dextrose 50%-Water Syringe) 12.5 gm PRN Q15MIN PRN IV SEE COMMENTS; Start 07/30/17 at 10:45 Oseltamivir Phosphate (Tamiflu) 30 mg BID PO Last administered on 07/31/17 09 :15; Start 07/30/17 at 21:00; Stop 08/03/17 at 21:01 Allopurinol (Zyloprim) 300 mg DAILY PO Last administered on 07/31/17 09:15; Start 07/30/17 at 11:00 Amlodipine Besylate (Norvasc) 10 mg DAILY PO Last administered on 07/31/17 09 :15; Start 07/30/17 at 11:00 Aspirin (Ecotrin) 81 mg DAILY PO Last administered on 07/31/17 09:14; Start 07/30/17 at 11:00 Metoprolol Succinate (Toprol Xl) 25 mg DAILY PO Last administered on 09:15; Start 07/30/17 at 11:00 Insulin Detemir (Levemir) 80 units DAILY SQ Last administered on 07/31/17 09: 24; Start 07/30/17 at 11:30 Doxazosin Mesylate (Cardura) 8 mg DAILY PO Last administered on 07/31/17t 09: 14; Start 07/30/17 at 11:00 Active Scripts Active Reported Metoprolol Succinate ( Xl ) (Metoprolol Succinate) 25 Mg Tab.er.24h 1 Tab PO DAILY Furosemide 80 Mg Tablet 1 Tab PO DAILY Atorvastatin Calcium 10 Mg Tablet 10 Mg PO HS Warfarin Sodium 3 Mg Tablet 1 Tab PO DAILY Amlodipine Besylate 10 Mg Tablet 10 Mg PO DAILY Allopurinol 300 Mg Tablet 1 Tab PO DAILY Lantus Solostar (Insulin Glargine,Hum.rec.anlog) 100 Unit/1 Ml Insuln.pen 80 Unit SQ DAILY Doxazosin Mesylate 8 Mg Tablet 8 Mg PO Aspirin Ec (Aspirin) 81 Mg Tablet.dr 81 Mg PO Atorvastatin Calcium 10 Mg Tablet 10 Mg PO Vitals/I & O Vital Sign - Last 24 Hours 07/30/17 07/30/17 07/30/17 07/30/17 11:00 11:01 12:09 12:10 Temp 98.1 98.1 98.1 98.1 Pulse 69 72 72 72 Resp 18 20 B/P (MAP) 136/69 (91) 150/75 (100) 150/75 150/75 Pulse Ox 95 96 O2 Delivery Nasal Cannula Nasal Cannula O2 Flow Rate 4.0 4.0 07/30/17 07/30/17 07/30/17 07/30/17 12:11 14:56 19:59 20:00 Temp 98.2 97.1 98.2 97.1 Pulse 72 70 70 Resp 18 22 B/P (MAP) 150/75 140/65 (90) 133/63 (86) Pulse Ox 95 91 O2 Delivery Nasal Cannula Nasal Cannula Nasal Cannula O2 Flow Rate 4.0 3.0 4.0 07/30/17 07/31/17 07/31/17 07/31/17 23:14 03:59 07:40 09:14 Temp 97.6 97.8 97.7 97.6 97.8 97.7 Pulse 70 71 81 81 Resp 20 22 B/P (MAP) 133/64 (87) 145/78 (100) 127/66 (86) 127/66 Pulse Ox 91 93 95 O2 Delivery Nasal Cannula Nasal Cannula Nasal Cannula O2 Flow Rate 3.0 4.0 4.0 07/31/17 07/31/17 09:15 09:15 Pulse 81 81 B/P (MAP) 127/66 127/66 Intake and Output 07/30/17 07/30/17 07/31/17 15:00 23:00 07:00 Intake Total 300 ml 100 ml Output Total 1000 ml 100 ml Balance 300 ml -1000 ml 0 ml BENNETT MILLARD III DO Jul 31, 2017 10:30
[2017-07-31 10:37] VITALS: BP 129/65
--- NOTE | 2017-07-31 13:59 | PDOC ---
Infectious Disease Note Vital Sign Vital Signs Vital Signs Date Time Temp Pulse Resp B/P (MAP) Pulse Ox O2 Delivery O2 Flow Rate FiO2 07/31/17 10:37 98.8 71 18 129/65 (86) 95 Nasal Cannula 4.0 98.8 Labs Lab Laboratory Tests Test 07/30/17 16:14 07/30/17 17:25 07/30/17 21:00 07/31/17 07:08 Glucose (Fingerstick) 186 mg/dL (70-99) 111 mg/dL (70-99) 75 mg/dL (70-99) Lactic Acid Level 1.6 mmol/L (0.4-2.0) Test 07/31/17 11:10 Glucose (Fingerstick) 168 mg/dL (70-99) Micro BLOOD CULTURE Preliminary NO GROWTH AFTER 1 DAY Objective Assessment Influenza A Lactic acidosis, improved Generalized weakness s/p fall Rhabdomyolysis COPD DM Plan Plan of Care Tamiflu hydration f/u cultures Supportive care Thank you [id number] Patient seen and examined. Chart reviewed. 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 Agree with above plan. CLARA NERI APRN Jul 31, 2017 13:59 JOSE BOLAÑOS MD Jul 31, 2017 18:58
[2017-07-31 15:14] VITALS: BP 140/61
--- NOTE | 2017-07-31 17:40 | CONS ---
DATE OF CONSULTATION: 07/31/2017 REFERRING PHYSICIAN: Dr. Ross. REASON FOR CONSULTATION: Influenza. HISTORY OF PRESENT ILLNESS: This patient is an 87-year-old male with a past medical history of chronic obstructive pulmonary disease, chronic kidney disease and diabetes mellitus who was found at home after lying on the floor for about 7 hours. The patient said he felt weak and had fallen. In addition, he has had a hacking nonproductive cough for the past 3-4 days. He denies fevers, chills or bodyaches. He denies headaches, nasal/sinus congestion or sore throat. He denies shortness of air or chest discomfort. He took Mucinex without relief. He tested positive for influenza A in the Emergency Room and was started on Tamiflu. He had a normal white blood cell count with a lactic acid of 2.7, creatine kinase 698 and creatinine 1.8. Blood cultures are negative to date. A chest x-ray showed clear lungs without infiltrate, effusion or pneumothorax. Since admission, the patient's appetite has improved. He still feels very weak, requiring assistance. PAST MEDICAL HISTORY: Chronic obstructive pulmonary disease, diabetes mellitus, chronic kidney disease, peripheral neuropathy, congestive heart failure, hyperlipidemia, atrial fibrillation on anticoagulation therapy, hypertension, prostate cancer, arthritis, anxiety, depression. PAST SURGICAL HISTORY: Cataract extraction, pacemaker placement, hiatal hernia repair, appendectomy, partial prostatectomy in 1982, left ankle fracture repair with hardware in place. SOCIAL HISTORY: The patient lives at home and cares for his . He says she has a cough as well, but not as bad. Former smoker. FAMILY HISTORY: Positive for hypertension, breast cancer, myocardial infarction, cerebrovascular accident and cervical cancer. ALLERGIES: No known drug allergies. MEDICATIONS: Tamiflu. Other medications are available and have been reviewed on the OCT. REVIEW OF SYSTEMS: Per HPI, otherwise all other review of systems is negative. PHYSICAL EXAMINATION: GENERAL: male, lying down, appearing weak, in no apparent distress. VITAL SIGNS: Temperature is 98.8, blood pressure 129/65, heart rate 71, respiratory rate 18, pulse oximetry 95% on 4 liters nasal cannula, weight 229 pounds, BMI 31. HEENT: Pupils equally round. Normal conjunctivae. Oral mucosa is pink and dry. No lesions seen. LUNGS: Soft scattered wheezing throughout. Nonlabored. HEART: Normal S1 and S2. ABDOMEN: Obese. Bowel sounds active. Soft, nontender. EXTREMITIES: No gross edema or cyanosis. SKIN: Without rash. NEUROLOGIC: Arouses easily to name. Answers appropriately and moves all extremities. LABORATORY DATA: Recent WBC 8.2, hemoglobin 15.7, platelet count 207,000. Electrolytes are unremarkable. Creatinine 1.8, BUN 35, glucose 318. Lactic acid 1.6 from 2.7 on admission. Total bilirubin 0.8, AST 38, ALT 35. Creatine kinase 518. Troponin 0.026. Albumin 3.0. Urinalysis unremarkable for infection. Influenza A positive. Blood cultures negative to date. Chest x-ray per HPI. Head CT shows chronic right occipital infarct, moderate atrophy and chronic microangiopathic white matter change; and no acute intracranial findings. Right shoulder x-ray shows no acute bony abnormality. IMPRESSION: 1. Influenza A. 2. Lactic acidosis, improved. 3. Generalized weakness. 4. Status post fall. 5. Rhabdomyolysis. 6. Chronic obstructive pulmonary disease. 7. Diabetes mellitus. PLAN: Continue the Tamiflu. Maintain hydration. Monitor cultures. Supportive care. OT and PT. Thank you, Dr. Ross, for asking us to participate in this patient's care. Should you have further questions or concerns, please call. JOSE BOLAÑOS MD DR: NAOMI/arnoldo JOB#: [id number] / [id number]
[2017-07-31 19:59] VITALS: BP 155/78
[2017-08-01 00:46] VITALS: BP 144/76
[2017-08-01 03:59] VITALS: BP 142/80
[2017-08-01 06:46] LABS: ALBUMIN 2.3 g/dL (3.4-5.0); ALBUMIN/GLOBULIN RATIO 0.6 (1.0-1.7); CALCIUM 8.8 mg/dL (8.5-10.1); CREATININE 1.5 mg/dL (0.7-1.3); GFR 44.2; TOTAL BILIRUBIN 0.5 mg/dL (0.2-1.0); TOTAL PROTEIN 6.1 g/dL (6.4-8.2)
[2017-08-01 06:49] LABS: POTASSIUM 2.9 mmol/L (3.5-5.1)
[2017-08-01 07:00] VITALS: BP 142/74
[2017-08-01 07:06] LABS: BASO % 1 % (0-3); EOS % 1 % (0-3); HEMATOCRIT 43.4 % (39.0-53.0); HEMOGLOBIN 14.4 g/dL (13.0-17.5); LYMPH # 1.7 x10^3/uL (1.0-4.8); LYMPH % 27 % (24-48); MEAN CORPUSCULAR HEMOGLOBIN 29 pg (25-35); MEAN CORPUSCULAR HGB CONC 33 g/dL (31-37); MEAN CORPUSCULAR VOLUME 88 fL (79-100); MONO % 18 % (0-9); NEUT % 54 % (31-73); PLATELET COUNT 199 x10^3/uL (140-400); RED BLOOD COUNT 4.93 x10^6/uL (4.30-5.70); RED CELL DISTRIBUTION WIDTH 15.2 % (11.5-14.5); WHITE BLOOD COUNT 6.3 x10^3/uL (4.0-11.0)
[2017-08-01] MEDS ORDERED: POTASSIUM CHLORIDE 20 MEQ TABLET.ER. PO ONE (07:45)
[2017-08-01] MEDS: INSULIN ASPART 300 UNITS/3 ML INSULN.PEN SQ SCH ×3 (08:00→16:48)
[2017-08-01] MEDS: METOPROLOL SUCC 24HR ER 25 MG TAB.ER.24H. PO SCH (08:47)
[2017-08-01] MEDS: ALLOPURINOL 300 MG TABLET. PO SCH (08:47)
[2017-08-01] MEDS: OSELTAMIVIR 30 MG CAPSULE PO SCH ×2 (08:47→20:33)
[2017-08-01] MEDS: ASPIRIN ENTERIC COATED 81 MG TABLET.DR. PO SCH (08:47)
[2017-08-01] MEDS: amLODIPine BESYLATE 10 MG TABLET PO SCH (08:48)
[2017-08-01] MEDS: DOXAZOSIN MESYLATE 4 MG TABLET. PO SCH (08:48)
[2017-08-01] MEDS: INSULIN DETEMIR 300 UNITS/3 ML INSULN.PEN. SQ SCH (08:58)
--- NOTE | 2017-08-01 12:23 | PDOC ---
PROGRESS NOTES Chief Complaint Chief Complaint Influenza Type A + COPD Rhabdomyolysis DM2 History of Present Illness History of Present Illness Pt seen and examined at bedside. No acute events overnight. Patient was sitting comfortably upon presentation and under droplet precautions for influenza which was positive on serology. Continue tamiflu, and supportive care. Vitals Vitals Vital Signs Date Time Temp Pulse Resp B/P (MAP) Pulse Ox O2 Delivery O2 Flow Rate FiO2 08/01/17 10:19 90 Room Air 08/01/17 08:48 73 142/74 08/01/17 07:00 98.0 20 4.0 98.0 Physical Exam General: Alert, Oriented X3, Cooperative, No acute distress Heart: Regular rate, No murmurs Abdomen: Normal bowel sounds, Soft, No tenderness, No hepatosplenomegaly, No masses Extremities: No clubbing, No cyanosis, No edema, Normal pulses, No tenderness/ swelling Skin: No rashes, No breakdown, No significant lesion Labs LABS Laboratory Tests Test 07/31/17 16:30 07/31/17 21:23 08/01/17 05:05 08/01/17 07:04 Glucose (Fingerstick) 87 mg/dL (70-99) 64 mg/dL (70-99) 78 mg/dL (70-99) White Blood Count 6.3 x10^3/uL (4.0-11.0) Red Blood Count 4.93 x10^6/uL (4.30-5.70) Hemoglobin 14.4 g/dL (13.0-17.5) Hematocrit 43.4 % (39.0-53.0) Mean Corpuscular Volume 88 fL (79-100) Mean Corpuscular Hemoglobin 29 pg (25-35) Mean Corpuscular Hemoglobin Concent 33 g/dL (31-37) Red Cell Distribution Width 15.2 % (11.5-14.5) Platelet Count 199 x10^3/uL (140-400) Neutrophils (%) (Auto) 54 % (31-73) Lymphocytes (%) (Auto) 27 % (24-48) Monocytes (%) (Auto) 18 % (0-9) Eosinophils (%) (Auto) 1 % (0-3) Basophils (%) (Auto) 1 % (0-3) Neutrophils # (Auto) 3.4 x10^3uL (1.8-7.7) Lymphocytes # (Auto) 1.7 x10^3/uL (1.0-4.8) Monocytes # (Auto) 1.1 x10^3/uL (0.0-1.1) Eosinophils # (Auto) 0.0 x10^3/uL (0.0-0.7) Basophils # (Auto) 0.0 x10^3/uL (0.0-0.2) Sodium Level 138 mmol/L (136-145) Potassium Level 2.9 mmol/L (3.5-5.1) Chloride Level 100 mmol/L (98-107) Carbon Dioxide Level 31 mmol/L (21-32) Anion Gap 7 (6-14) Blood Urea Nitrogen 35 mg/dL (8-26) Creatinine 1.5 mg/dL (0.7-1.3) Estimated GFR (Cockcroft-Gault) 44.2 BUN/Creatinine Ratio 23 (6-20) Glucose Level 69 mg/dL (70-99) Calcium Level 8.8 mg/dL (8.5-10.1) Total Bilirubin 0.5 mg/dL (0.2-1.0) Aspartate Amino Transf (AST/SGOT) 49 U/L (15-37) Alanine Aminotransferase (ALT/SGPT) 33 U/L (16-63) Alkaline Phosphatase 50 U/L (46-116) Total Protein 6.1 g/dL (6.4-8.2) Albumin 2.3 g/dL (3.4-5.0) Albumin/Globulin Ratio 0.6 (1.0-1.7) Test 08/01/17 11:21 Glucose (Fingerstick) 287 mg/dL (70-99) Review of Systems Review of Systems SOB Cough Nasal Congestion Assessment and Plan Assessmemt and Plan Problems Medical Problems: (1) Elevated CK Status: Acute (2) PNA (pneumonia) Status: Acute (3) Weakness Status: Acute Influenza Type A + COPD Rhabdomyolysis DM2 Hypokalemia Plan: Tamiflu Replated potassium Follow ID recs, appreciate recommendation Droplet precautions IV fluids Blood Cx pending (prelim was negative 08/01) Home meds Morning labs PT/OT Problems: Comment Review of Relevant I have reviewed the following items kari (where applicable) has been applied. Labs Laboratory Tests Test 07/30/17 16:14 07/30/17 17:25 07/30/17 21:00 07/31/17 07:08 Glucose (Fingerstick) 186 mg/dL (70-99) 111 mg/dL (70-99) 75 mg/dL (70-99) Lactic Acid Level 1.6 mmol/L (0.4-2.0) Test 07/31/17 11:10 07/31/17 16:30 07/31/17 21:23 08/01/17 05:05 Glucose (Fingerstick) 168 mg/dL (70-99) 87 mg/dL (70-99) 64 mg/dL (70-99) White Blood Count 6.3 x10^3/uL (4.0-11.0) Red Blood Count 4.93 x10^6/uL (4.30-5.70) Hemoglobin 14.4 g/dL (13.0-17.5) Hematocrit 43.4 % (39.0-53.0) Mean Corpuscular Volume 88 fL (79-100) Mean Corpuscular Hemoglobin 29 pg (25-35) Mean Corpuscular Hemoglobin Concent 33 g/dL (31-37) Red Cell Distribution Width 15.2 % (11.5-14.5) Platelet Count 199 x10^3/uL (140-400) Neutrophils (%) (Auto) 54 % (31-73) Lymphocytes (%) (Auto) 27 % (24-48) Monocytes (%) (Auto) 18 % (0-9) Eosinophils (%) (Auto) 1 % (0-3) Basophils (%) (Auto) 1 % (0-3) Neutrophils # (Auto) 3.4 x10^3uL (1.8-7.7) Lymphocytes # (Auto) 1.7 x10^3/uL (1.0-4.8) Monocytes # (Auto) 1.1 x10^3/uL (0.0-1.1) Eosinophils # (Auto) 0.0 x10^3/uL (0.0-0.7) Basophils # (Auto) 0.0 x10^3/uL (0.0-0.2) Sodium Level 138 mmol/L (136-145) Potassium Level 2.9 mmol/L (3.5-5.1) Chloride Level 100 mmol/L (98-107) Carbon Dioxide Level 31 mmol/L (21-32) Anion Gap 7 (6-14) Blood Urea Nitrogen 35 mg/dL (8-26) Creatinine 1.5 mg/dL (0.7-1.3) Estimated GFR (Cockcroft-Gault) 44.2 BUN/Creatinine Ratio 23 (6-20) Glucose Level 69 mg/dL (70-99) Calcium Level 8.8 mg/dL (8.5-10.1) Total Bilirubin 0.5 mg/dL (0.2-1.0) Aspartate Amino Transf (AST/SGOT) 49 U/L (15-37) Alanine Aminotransferase (ALT/SGPT) 33 U/L (16-63) Alkaline Phosphatase 50 U/L (46-116) Total Protein 6.1 g/dL (6.4-8.2) Albumin 2.3 g/dL (3.4-5.0) Albumin/Globulin Ratio 0.6 (1.0-1.7) Test 08/01/17 07:04 08/01/17 11:21 Glucose (Fingerstick) 78 mg/dL (70-99) 287 mg/dL (70-99) Laboratory Tests Test 07/31/17 16:30 07/31/17 21:23 08/01/17 05:05 08/01/17 07:04 Glucose (Fingerstick) 87 mg/dL (70-99) 64 mg/dL (70-99) 78 mg/dL (70-99) White Blood Count 6.3 x10^3/uL (4.0-11.0) Red Blood Count 4.93 x10^6/uL (4.30-5.70) Hemoglobin 14.4 g/dL (13.0-17.5) Hematocrit 43.4 % (39.0-53.0) Mean Corpuscular Volume 88 fL (79-100) Mean Corpuscular Hemoglobin 29 pg (25-35) Mean Corpuscular Hemoglobin Concent 33 g/dL (31-37) Red Cell Distribution Width 15.2 % (11.5-14.5) Platelet Count 199 x10^3/uL (140-400) Neutrophils (%) (Auto) 54 % (31-73) Lymphocytes (%) (Auto) 27 % (24-48) Monocytes (%) (Auto) 18 % (0-9) Eosinophils (%) (Auto) 1 % (0-3) Basophils (%) (Auto) 1 % (0-3) Neutrophils # (Auto) 3.4 x10^3uL (1.8-7.7) Lymphocytes # (Auto) 1.7 x10^3/uL (1.0-4.8) Monocytes # (Auto) 1.1 x10^3/uL (0.0-1.1) Eosinophils # (Auto) 0.0 x10^3/uL (0.0-0.7) Basophils # (Auto) 0.0 x10^3/uL (0.0-0.2) Sodium Level 138 mmol/L (136-145) Potassium Level 2.9 mmol/L (3.5-5.1) Chloride Level 100 mmol/L (98-107) Carbon Dioxide Level 31 mmol/L (21-32) Anion Gap 7 (6-14) Blood Urea Nitrogen 35 mg/dL (8-26) Creatinine 1.5 mg/dL (0.7-1.3) Estimated GFR (Cockcroft-Gault) 44.2 BUN/Creatinine Ratio 23 (6-20) Glucose Level 69 mg/dL (70-99) Calcium Level 8.8 mg/dL (8.5-10.1) Total Bilirubin 0.5 mg/dL (0.2-1.0) Aspartate Amino Transf (AST/SGOT) 49 U/L (15-37) Alanine Aminotransferase (ALT/SGPT) 33 U/L (16-63) Alkaline Phosphatase 50 U/L (46-116) Total Protein 6.1 g/dL (6.4-8.2) Albumin 2.3 g/dL (3.4-5.0) Albumin/Globulin Ratio 0.6 (1.0-1.7) Test 08/01/17 11:21 Glucose (Fingerstick) 287 mg/dL (70-99) Microbiology 07/30/17 Blood Culture - Preliminary, Resulted NO GROWTH AFTER 2 DAYS Medications Current Medications Sodium Chloride 250 ml @ 250 mls/hr 1X ONCE IV Last administered on t 06:00; Start 07/30/17 at 06:00; Stop 07/30/17 at 06:59; Status DC Albuterol/ Ipratropium (Duoneb) 3 ml 1X ONCE NEB Last administered on 06:18; Start 07/30/17 at 06:30; Stop 07/30/17 at 06:31; Status DC Sodium Chloride 500 ml @ 500 mls/hr 1X ONCE IV ; Start 07/30/17 at 07:30; Stop 07/30/17 at 07:45; Status DC Sodium Chloride 1,000 ml @ 125 mls/hr Q8H IV Last administered on 07/30/17 08:05; Start 07/30/17 at 07:27; Stop 07/30/17 at 19:46; Status DC Azithromycin 250 ml @ 250 mls/hr 1X ONCE IV Last administered on 07/30/17 09:28; Start 07/30/17 at 07:30; Stop 07/30/17 at 08:29; Status DC Ceftriaxone Sodium 50 ml @ 100 mls/hr 1X ONCE IV Last administered on 08:04; Start 07/30/17 at 07:30; Stop 07/30/17 at 07:59; Status DC Ondansetron HCl (Zofran) 4 mg PRN Q8HRS PRN IV NAUSEA/VOMITING; Start at 07:30; Stop 07/31/17 at 07:29; Status DC Morphine Sulfate 2 mg PRN Q2HR PRN IV PAIN; Start 07/30/17 at 07:30; Stop at 07:29; Status DC Sodium Chloride 1,000 ml @ 100 mls/hr Q10H IV ; Start 07/30/17 at 07:27; Stop 07/30/17 at 07:45; Status DC Oseltamivir Phosphate (Tamiflu) 75 mg 1X ONCE PO Last administered on 08:12; Start 07/30/17 at 08:15; Stop 07/30/17 at 08:16; Status DC Acetaminophen (Tylenol) 500 mg PRN Q6HRS PRN PO MILD PAIN / TEMP; Start at 10:45 Oseltamivir Phosphate (Tamiflu) 30 mg BID PO ; Start 07/30/17 at 11:00; Stop 08/04/17 at 10:59; Status Cancel Insulin Aspart (NovoLOG) 0-9 UNITS TIDWMEALS SQ Last administered on 12:03; Start 07/30/17 at 12:00 Dextrose (Dextrose 50%-Water Syringe) 12.5 gm PRN Q15MIN PRN IV SEE COMMENTS; Start 07/30/17 at 10:45 Oseltamivir Phosphate (Tamiflu) 30 mg BID PO Last administered on 08/01/17 08 :47; Start 07/30/17 at 21:00; Stop 08/03/17 at 21:01 Allopurinol (Zyloprim) 300 mg DAILY PO Last administered on 08/01/17 08:47; Start 07/30/17 at 11:00 Amlodipine Besylate (Norvasc) 10 mg DAILY PO Last administered on 08/01/17 08 :48; Start 07/30/17 at 11:00 Aspirin (Ecotrin) 81 mg DAILY PO Last administered on 08/01/17 08:47; Start 07/30/17 at 11:00 Metoprolol Succinate (Toprol Xl) 25 mg DAILY PO Last administered on 08:47; Start 07/30/17 at 11:00 Insulin Detemir (Levemir) 80 units DAILY SQ Last administered on 08/01/17 08: 58; Start 07/30/17 at 11:30 Doxazosin Mesylate (Cardura) 8 mg DAILY PO Last administered on 08/01/17 08: 48; Start 07/30/17 at 11:00 Potassium Chloride (Klor-Con) 40 meq 1X ONCE PO Last administered on 08:47; Start 08/01/17 at 07:45; Stop 08/01/17 at 07:46; Status DC Active Scripts Active Reported Metoprolol Succinate ( Xl ) (Metoprolol Succinate) 25 Mg Tab.er.24h 1 Tab PO DAILY Furosemide 80 Mg Tablet 1 Tab PO DAILY Atorvastatin Calcium 10 Mg Tablet 10 Mg PO HS Warfarin Sodium 3 Mg Tablet 1 Tab PO DAILY Amlodipine Besylate 10 Mg Tablet 10 Mg PO DAILY Allopurinol 300 Mg Tablet 1 Tab PO DAILY Lantus Solostar (Insulin Glargine,Hum.rec.anlog) 100 Unit/1 Ml Insuln.pen 80 Unit SQ DAILY Doxazosin Mesylate 8 Mg Tablet 8 Mg PO Aspirin Ec (Aspirin) 81 Mg Tablet.dr 81 Mg PO Atorvastatin Calcium 10 Mg Tablet 10 Mg PO Vitals/I & O Vital Sign - Last 24 Hours 07/31/17 07/31/17 07/31/17 07/31/17 15:14 19:59 20:00 23:00 Temp 96.5 97.2 96.5 97.2 Pulse 70 73 Resp 18 20 B/P (MAP) 140/61 (87) 155/78 (103) Pulse Ox 93 95 O2 Delivery Nasal Cannula Nasal Cannula Nasal Cannula Nasal Cannula O2 Flow Rate 4.0 4.0 4.0 08/01/17 08/01/17 08/01/17 08/01/17 00:46 03:59 07:00 08:00 Temp 99.3 97.6 98.0 99.3 97.6 98.0 Pulse 72 70 73 Resp 20 20 20 B/P (MAP) 144/76 (98) 142/80 (100) 142/74 (96) Pulse Ox 95 96 96 O2 Delivery Nasal Cannula Room Air Nasal Cannula Room Air O2 Flow Rate 4.0 4.0 08/01/17 08/01/17 08/01/17 08/01/17 08:47 08:48 08:48 09:00 Pulse 73 73 73 B/P (MAP) 142/74 142/74 142/74 Pulse Ox 92 O2 Delivery Room Air 08/01/17 10:19 Pulse Ox 90 O2 Delivery Room Air Intake and Output 07/31/17 07/31/17 08/01/17 14:59 22:59 06:59 Intake Total 240 ml 300 ml Output Total 150 ml 725 ml Balance 90 ml -425 ml BENNETT MILLARD III DO Aug 01, 2017 12:23
[2017-08-01] MEDS ORDERED: POTASSIUM CHLORIDE 20MEQ 50 ML IV ONE (12:30)
[2017-08-01] MEDS ORDERED: POTASSIUM CHLORIDE 10 MEQ in IV NORMAL SALINE 100ML 100 ML IV SCH (13:00)
[2017-08-01] MEDS: POTASSIUM CHLORIDE 10MEQ 100 ML IV SCH ×2 (13:00→13:37)
[2017-08-01 15:00] VITALS: BP 137/75
[2017-08-01 19:00] VITALS: BP 155/88
[2017-08-01] MEDS ORDERED: diphenhydrAMINE HCL 25 MG CAPSULE PO PRN (19:30)
[2017-08-01 21:08] LABS: INR 1.7 (0.8-1.1); PROTHROMBIN TIME PATIENT 18.5 SEC (11.7-14.0)
[2017-08-01] MEDS ORDERED: WARFARIN 3 MG TABLET. PO ONE (22:00)
[2017-08-01 23:00] VITALS: BP 138/88
[2017-08-02] VITALS (7 sets, daily range): BP systolic 98–154; BP diastolic 63–86
[2017-08-02 05:46] LABS: BASO % 1 % (0-3); EOS % 2 % (0-3); HEMATOCRIT 45.1 % (39.0-53.0); HEMOGLOBIN 14.8 g/dL (13.0-17.5); LYMPH # 1.7 x10^3/uL (1.0-4.8); LYMPH % 34 % (24-48); MEAN CORPUSCULAR HEMOGLOBIN 29 pg (25-35); MEAN CORPUSCULAR HGB CONC 33 g/dL (31-37); MEAN CORPUSCULAR VOLUME 87 fL (79-100); MONO % 17 % (0-9); NEUT % 47 % (31-73); PLATELET COUNT 202 x10^3/uL (140-400); RED BLOOD COUNT 5.19 x10^6/uL (4.30-5.70)
[2017-08-02 05:50] LABS: INR 1.6 (0.8-1.1); PROTHROMBIN TIME PATIENT 18.1 SEC (11.7-14.0)
[2017-08-02 06:07] LABS: ALBUMIN 2.4 g/dL (3.4-5.0); ALBUMIN/GLOBULIN RATIO 0.6 (1.0-1.7); CREATININE 1.5 mg/dL (0.7-1.3); GFR 44.2; POTASSIUM 3.2 mmol/L (3.5-5.1); TOTAL BILIRUBIN 0.5 mg/dL (0.2-1.0); TOTAL PROTEIN 6.2 g/dL (6.4-8.2)
[2017-08-02] MEDS: INSULIN ASPART 300 UNITS/3 ML INSULN.PEN SQ SCH ×3 (08:00→17:01)
[2017-08-02] MEDS: ALLOPURINOL 300 MG TABLET. PO SCH (08:25)
[2017-08-02] MEDS: ASPIRIN ENTERIC COATED 81 MG TABLET.DR. PO SCH (08:25)
[2017-08-02] MEDS: METOPROLOL SUCC 24HR ER 25 MG TAB.ER.24H. PO SCH (08:26)
[2017-08-02] MEDS: OSELTAMIVIR 30 MG CAPSULE PO SCH ×2 (08:26→20:27)
[2017-08-02] MEDS: amLODIPine BESYLATE 10 MG TABLET PO SCH (08:26)
[2017-08-02] MEDS: DOXAZOSIN MESYLATE 4 MG TABLET. PO SCH (08:27)
[2017-08-02] MEDS: BENZOCAINE/MENTHOL LOZENGE. PO PRN ×3 (08:28→16:10)
[2017-08-02] MEDS: INSULIN DETEMIR 300 UNITS/3 ML INSULN.PEN. SQ SCH (08:36)
--- NOTE | 2017-08-02 10:09 | PDOC ---
PROGRESS NOTES Chief Complaint Chief Complaint Influenza Type A + COPD Rhabdomyolysis DM2 History of Present Illness History of Present Illness Pt seen and examined at bedside. No acute events overnight. Patient was sitting and sleeping comfortably upon presentation and under droplet precautions for influenza which was positive on serology. Continue tamiflu, and supportive care. Potassium was mildly decreased at 3.2 Vitals Vitals Vital Signs Date Time Temp Pulse Resp B/P (MAP) Pulse Ox O2 Delivery O2 Flow Rate FiO2 08/02/17 08:27 71 149/70 08/02/17 08:00 Room Air 08/02/17 07:40 96.0 18 91 96.0 08/01/17 15:00 4.0 Physical Exam General: Alert, Oriented X3, Cooperative, No acute distress Heart: Regular rate, No murmurs Abdomen: Normal bowel sounds, Soft, No tenderness, No hepatosplenomegaly, No masses Extremities: No clubbing, No cyanosis, No edema, Normal pulses, No tenderness/ swelling Skin: No rashes, No breakdown, No significant lesion Labs LABS Laboratory Tests Test 08/01/17 11:21 08/01/17 16:17 08/01/17 20:15 08/01/17 20:21 Glucose (Fingerstick) 287 mg/dL (70-99) 215 mg/dL (70-99) 210 mg/dL (70-99) Prothrombin Time 18.5 SEC (11.7-14.0) Prothromb Time International Ratio 1.7 (0.8-1.1) Test 08/02/17 04:35 08/02/17 05:59 08/02/17 06:58 White Blood Count 5.0 x10^3/uL (4.0-11.0) Red Blood Count 5.19 x10^6/uL (4.30-5.70) Hemoglobin 14.8 g/dL (13.0-17.5) Hematocrit 45.1 % (39.0-53.0) Mean Corpuscular Volume 87 fL (79-100) Mean Corpuscular Hemoglobin 29 pg (25-35) Mean Corpuscular Hemoglobin Concent 33 g/dL (31-37) Red Cell Distribution Width 15.0 % (11.5-14.5) Platelet Count 202 x10^3/uL (140-400) Neutrophils (%) (Auto) 47 % (31-73) Lymphocytes (%) (Auto) 34 % (24-48) Monocytes (%) (Auto) 17 % (0-9) Eosinophils (%) (Auto) 2 % (0-3) Basophils (%) (Auto) 1 % (0-3) Neutrophils # (Auto) 2.3 x10^3uL (1.8-7.7) Lymphocytes # (Auto) 1.7 x10^3/uL (1.0-4.8) Monocytes # (Auto) 0.8 x10^3/uL (0.0-1.1) Eosinophils # (Auto) 0.1 x10^3/uL (0.0-0.7) Basophils # (Auto) 0.0 x10^3/uL (0.0-0.2) Prothrombin Time 18.1 SEC (11.7-14.0) Prothromb Time International Ratio 1.6 (0.8-1.1) Sodium Level 141 mmol/L (136-145) Potassium Level 3.2 mmol/L (3.5-5.1) Chloride Level 103 mmol/L (98-107) Carbon Dioxide Level 31 mmol/L (21-32) Anion Gap 7 (6-14) Blood Urea Nitrogen 32 mg/dL (8-26) Creatinine 1.5 mg/dL (0.7-1.3) Estimated GFR (Cockcroft-Gault) 44.2 BUN/Creatinine Ratio 21 (6-20) Glucose Level 94 mg/dL (70-99) Calcium Level 9.0 mg/dL (8.5-10.1) Total Bilirubin 0.5 mg/dL (0.2-1.0) Aspartate Amino Transf (AST/SGOT) 45 U/L (15-37) Alanine Aminotransferase (ALT/SGPT) 38 U/L (16-63) Alkaline Phosphatase 60 U/L (46-116) Total Protein 6.2 g/dL (6.4-8.2) Albumin 2.4 g/dL (3.4-5.0) Albumin/Globulin Ratio 0.6 (1.0-1.7) Glucose (Fingerstick) 64 mg/dL (70-99) 148 mg/dL (70-99) Review of Systems Review of Systems Fatigue SOB Assessment and Plan Assessmemt and Plan Problems Medical Problems: (1) Elevated CK Status: Acute (2) PNA (pneumonia) Status: Acute (3) Weakness Status: Acute Influenza Type A + COPD Rhabdomyolysis DM2 Hypokalemia Plan: Continue Tamiflu Replated potassium Follow ID recs, appreciate recommendation Droplet precautions IV fluids Blood Cx negative (08/02) Home meds Morning labs PT/OT Problems: Comment Review of Relevant I have reviewed the following items kari (where applicable) has been applied. Labs Laboratory Tests Test 07/31/17 11:10 07/31/17 16:30 07/31/17 21:23 08/01/17 05:05 Glucose (Fingerstick) 168 mg/dL (70-99) 87 mg/dL (70-99) 64 mg/dL (70-99) White Blood Count 6.3 x10^3/uL (4.0-11.0) Red Blood Count 4.93 x10^6/uL (4.30-5.70) Hemoglobin 14.4 g/dL (13.0-17.5) Hematocrit 43.4 % (39.0-53.0) Mean Corpuscular Volume 88 fL (79-100) Mean Corpuscular Hemoglobin 29 pg (25-35) Mean Corpuscular Hemoglobin Concent 33 g/dL (31-37) Red Cell Distribution Width 15.2 % (11.5-14.5) Platelet Count 199 x10^3/uL (140-400) Neutrophils (%) (Auto) 54 % (31-73) Lymphocytes (%) (Auto) 27 % (24-48) Monocytes (%) (Auto) 18 % (0-9) Eosinophils (%) (Auto) 1 % (0-3) Basophils (%) (Auto) 1 % (0-3) Neutrophils # (Auto) 3.4 x10^3uL (1.8-7.7) Lymphocytes # (Auto) 1.7 x10^3/uL (1.0-4.8) Monocytes # (Auto) 1.1 x10^3/uL (0.0-1.1) Eosinophils # (Auto) 0.0 x10^3/uL (0.0-0.7) Basophils # (Auto) 0.0 x10^3/uL (0.0-0.2) Sodium Level 138 mmol/L (136-145) Potassium Level 2.9 mmol/L (3.5-5.1) Chloride Level 100 mmol/L (98-107) Carbon Dioxide Level 31 mmol/L (21-32) Anion Gap 7 (6-14) Blood Urea Nitrogen 35 mg/dL (8-26) Creatinine 1.5 mg/dL (0.7-1.3) Estimated GFR (Cockcroft-Gault) 44.2 BUN/Creatinine Ratio 23 (6-20) Glucose Level 69 mg/dL (70-99) Calcium Level 8.8 mg/dL (8.5-10.1) Total Bilirubin 0.5 mg/dL (0.2-1.0) Aspartate Amino Transf (AST/SGOT) 49 U/L (15-37) Alanine Aminotransferase (ALT/SGPT) 33 U/L (16-63) Alkaline Phosphatase 50 U/L (46-116) Total Protein 6.1 g/dL (6.4-8.2) Albumin 2.3 g/dL (3.4-5.0) Albumin/Globulin Ratio 0.6 (1.0-1.7) Test 08/01/17 07:04 08/01/17 11:21 08/01/17 16:17 08/01/17 20:15 Glucose (Fingerstick) 78 mg/dL (70-99) 287 mg/dL (70-99) 215 mg/dL (70-99) Prothrombin Time 18.5 SEC (11.7-14.0) Prothromb Time International Ratio 1.7 (0.8-1.1) Test 08/01/17 20:21 08/02/17 04:35 08/02/17 05:59 08/02/17 06:58 Glucose (Fingerstick) 210 mg/dL (70-99) 64 mg/dL (70-99) 148 mg/dL (70-99) White Blood Count 5.0 x10^3/uL (4.0-11.0) Red Blood Count 5.19 x10^6/uL (4.30-5.70) Hemoglobin 14.8 g/dL (13.0-17.5) Hematocrit 45.1 % (39.0-53.0) Mean Corpuscular Volume 87 fL (79-100) Mean Corpuscular Hemoglobin 29 pg (25-35) Mean Corpuscular Hemoglobin Concent 33 g/dL (31-37) Red Cell Distribution Width 15.0 % (11.5-14.5) Platelet Count 202 x10^3/uL (140-400) Neutrophils (%) (Auto) 47 % (31-73) Lymphocytes (%) (Auto) 34 % (24-48) Monocytes (%) (Auto) 17 % (0-9) Eosinophils (%) (Auto) 2 % (0-3) Basophils (%) (Auto) 1 % (0-3) Neutrophils # (Auto) 2.3 x10^3uL (1.8-7.7) Lymphocytes # (Auto) 1.7 x10^3/uL (1.0-4.8) Monocytes # (Auto) 0.8 x10^3/uL (0.0-1.1) Eosinophils # (Auto) 0.1 x10^3/uL (0.0-0.7) Basophils # (Auto) 0.0 x10^3/uL (0.0-0.2) Prothrombin Time 18.1 SEC (11.7-14.0) Prothromb Time International Ratio 1.6 (0.8-1.1) Sodium Level 141 mmol/L (136-145) Potassium Level 3.2 mmol/L (3.5-5.1) Chloride Level 103 mmol/L (98-107) Carbon Dioxide Level 31 mmol/L (21-32) Anion Gap 7 (6-14) Blood Urea Nitrogen 32 mg/dL (8-26) Creatinine 1.5 mg/dL (0.7-1.3) Estimated GFR (Cockcroft-Gault) 44.2 BUN/Creatinine Ratio 21 (6-20) Glucose Level 94 mg/dL (70-99) Calcium Level 9.0 mg/dL (8.5-10.1) Total Bilirubin 0.5 mg/dL (0.2-1.0) Aspartate Amino Transf (AST/SGOT) 45 U/L (15-37) Alanine Aminotransferase (ALT/SGPT) 38 U/L (16-63) Alkaline Phosphatase 60 U/L (46-116) Total Protein 6.2 g/dL (6.4-8.2) Albumin 2.4 g/dL (3.4-5.0) Albumin/Globulin Ratio 0.6 (1.0-1.7) Laboratory Tests Test 08/01/17 11:21 08/01/17 16:17 08/01/17 20:15 08/01/17 20:21 Glucose (Fingerstick) 287 mg/dL (70-99) 215 mg/dL (70-99) 210 mg/dL (70-99) Prothrombin Time 18.5 SEC (11.7-14.0) Prothromb Time International Ratio 1.7 (0.8-1.1) Test 08/02/17 04:35 08/02/17 05:59 08/02/17 06:58 White Blood Count 5.0 x10^3/uL (4.0-11.0) Red Blood Count 5.19 x10^6/uL (4.30-5.70) Hemoglobin 14.8 g/dL (13.0-17.5) Hematocrit 45.1 % (39.0-53.0) Mean Corpuscular Volume 87 fL (79-100) Mean Corpuscular Hemoglobin 29 pg (25-35) Mean Corpuscular Hemoglobin Concent 33 g/dL (31-37) Red Cell Distribution Width 15.0 % (11.5-14.5) Platelet Count 202 x10^3/uL (140-400) Neutrophils (%) (Auto) 47 % (31-73) Lymphocytes (%) (Auto) 34 % (24-48) Monocytes (%) (Auto) 17 % (0-9) Eosinophils (%) (Auto) 2 % (0-3) Basophils (%) (Auto) 1 % (0-3) Neutrophils # (Auto) 2.3 x10^3uL (1.8-7.7) Lymphocytes # (Auto) 1.7 x10^3/uL (1.0-4.8) Monocytes # (Auto) 0.8 x10^3/uL (0.0-1.1) Eosinophils # (Auto) 0.1 x10^3/uL (0.0-0.7) Basophils # (Auto) 0.0 x10^3/uL (0.0-0.2) Prothrombin Time 18.1 SEC (11.7-14.0) Prothromb Time International Ratio 1.6 (0.8-1.1) Sodium Level 141 mmol/L (136-145) Potassium Level 3.2 mmol/L (3.5-5.1) Chloride Level 103 mmol/L (98-107) Carbon Dioxide Level 31 mmol/L (21-32) Anion Gap 7 (6-14) Blood Urea Nitrogen 32 mg/dL (8-26) Creatinine 1.5 mg/dL (0.7-1.3) Estimated GFR (Cockcroft-Gault) 44.2 BUN/Creatinine Ratio 21 (6-20) Glucose Level 94 mg/dL (70-99) Calcium Level 9.0 mg/dL (8.5-10.1) Total Bilirubin 0.5 mg/dL (0.2-1.0) Aspartate Amino Transf (AST/SGOT) 45 U/L (15-37) Alanine Aminotransferase (ALT/SGPT) 38 U/L (16-63) Alkaline Phosphatase 60 U/L (46-116) Total Protein 6.2 g/dL (6.4-8.2) Albumin 2.4 g/dL (3.4-5.0) Albumin/Globulin Ratio 0.6 (1.0-1.7) Glucose (Fingerstick) 64 mg/dL (70-99) 148 mg/dL (70-99) Microbiology 07/30/17 Blood Culture - Preliminary, Resulted NO GROWTH AFTER 3 DAYS Medications Current Medications Sodium Chloride 250 ml @ 250 mls/hr 1X ONCE IV Last administered on 06:00; Start 07/30/17 at 06:00; Stop 07/30/17 at 06:59; Status DC Albuterol/ Ipratropium (Duoneb) 3 ml 1X ONCE NEB Last administered on 06:18; Start 07/30/17 at 06:30; Stop 07/30/17 at 06:31; Status DC Sodium Chloride 500 ml @ 500 mls/hr 1X ONCE IV ; Start 07/30/17 at 07:30; Stop 07/30/17 at 07:45; Status DC Sodium Chloride 1,000 ml @ 125 mls/hr Q8H IV Last administered on 07/30/17 08:05; Start 07/30/17 at 07:27; Stop 07/30/17 at 19:46; Status DC Azithromycin 250 ml @ 250 mls/hr 1X ONCE IV Last administered on 07/30/17 09:28; Start 07/30/17 at 07:30; Stop 07/30/17 at 08:29; Status DC Ceftriaxone Sodium 50 ml @ 100 mls/hr 1X ONCE IV Last administered on 08:04; Start 07/30/17 at 07:30; Stop 07/30/17 at 07:59; Status DC Ondansetron HCl (Zofran) 4 mg PRN Q8HRS PRN IV NAUSEA/VOMITING; Start at 07:30; Stop 07/31/17 at 07:29; Status DC Morphine Sulfate 2 mg PRN Q2HR PRN IV PAIN; Start 07/30/17 at 07:30; Stop at 07:29; Status DC Sodium Chloride 1,000 ml @ 100 mls/hr Q10H IV ; Start 07/30/17 at 07:27; Stop 07/30/17 at 07:45; Status DC Oseltamivir Phosphate (Tamiflu) 75 mg 1X ONCE PO Last administered on 08:12; Start 07/30/17 at 08:15; Stop 07/30/17 at 08:16; Status DC Acetaminophen (Tylenol) 500 mg PRN Q6HRS PRN PO MILD PAIN / TEMP; Start at 10:45 Oseltamivir Phosphate (Tamiflu) 30 mg BID PO ; Start 07/30/17 at 11:00; Stop 08/04/17 at 10:59; Status Cancel Insulin Aspart (NovoLOG) 0-9 UNITS TIDWMEALS SQ Last administered on 16:48; Start 07/30/17 at 12:00 Dextrose (Dextrose 50%-Water Syringe) 12.5 gm PRN Q15MIN PRN IV SEE COMMENTS; Start 07/30/17 at 10:45 Oseltamivir Phosphate (Tamiflu) 30 mg BID PO Last administered on 08/02/17 08 :26; Start 07/30/17 at 21:00; Stop 08/03/17 at 21:01 Allopurinol (Zyloprim) 300 mg DAILY PO Last administered on 08/02/17 08:25; Start 07/30/17 at 11:00 Amlodipine Besylate (Norvasc) 10 mg DAILY PO Last administered on 08/02/17 08 :26; Start 07/30/17 at 11:00 Aspirin (Ecotrin) 81 mg DAILY PO Last administered on 08/02/17 08:25; Start 07/30/17 at 11:00 Metoprolol Succinate (Toprol Xl) 25 mg DAILY PO Last administered on 08:26; Start 07/30/17 at 11:00 Insulin Detemir (Levemir) 80 units DAILY SQ Last administered on 08/02/17 08: 36; Start 07/30/17 at 11:30 Doxazosin Mesylate (Cardura) 8 mg DAILY PO Last administered on 08/02/17 08: 27; Start 07/30/17 at 11:00 Potassium Chloride (Klor-Con) 40 meq 1X ONCE PO Last administered on 08:47; Start 08/01/17 at 07:45; Stop 08/01/17 at 07:46; Status DC Potassium Chloride 50 ml @ 50 mls/hr ONCE ONCE IV ; Start 08/01/17 at 12:30; Stop 08/01/17 at 13:29; Status UNV Potassium Chloride 10 meq/ Sodium Chloride 105 ml @ 105 mls/hr Q1H IV ; Start 08/01/17 at 13:00; Stop 08/01/17 at 14:59; Status Cancel Potassium Chloride 100 ml @ 100 mls/hr Q1H IV ; Start 08/01/17 at 13:00; Stop 08/01/17 at 13:39; Status DC Warfarin Sodium (Coumadin Per Pharmacy) 1 each PRN DAILY PRN MC SEE COMMENTS Last administered on 08/01/17 23:20; Start 08/01/17 at 19:30 Diphenhydramine HCl (Benadryl) 25 mg PRN QHS PRN PO INSOMNIA Last administered on 08/01/17 22:23; Start 08/01/17 at 19:30 Warfarin Sodium (Coumadin) 3 mg 1X ONCE PO Last administered on 08/01/17 22: 23; Start 08/01/17 at 22:00; Stop 08/01/17 at 22:01; Status DC Throat Lozenges (Cepacol Sore Throat Lozenge) 1 benjamin PRN Q2HRS PRN PO SORE THROAT Last administered on 08/02/17t 08:28; Start 08/02/17 at 08:15 Active Scripts Active Reported Metoprolol Succinate ( Xl ) (Metoprolol Succinate) 25 Mg Tab.er.24h 1 Tab PO DAILY Furosemide 80 Mg Tablet 1 Tab PO DAILY Atorvastatin Calcium 10 Mg Tablet 10 Mg PO HS Warfarin Sodium 3 Mg Tablet 1 Tab PO DAILY Amlodipine Besylate 10 Mg Tablet 10 Mg PO DAILY Allopurinol 300 Mg Tablet 1 Tab PO DAILY Lantus Solostar (Insulin Glargine,Hum.rec.anlog) 100 Unit/1 Ml Insuln.pen 80 Unit SQ DAILY Doxazosin Mesylate 8 Mg Tablet 8 Mg PO Aspirin Ec (Aspirin) 81 Mg Tablet.dr 81 Mg PO Atorvastatin Calcium 10 Mg Tablet 10 Mg PO Vitals/I & O Vital Sign - Last 24 Hours 08/01/17 08/01/17 08/01/17 08/01/17 10:19 15:00 19:00 19:30 Temp 97.9 97.9 97.9 97.9 Pulse 75 81 Resp 20 19 B/P (MAP) 137/75 (95) 155/88 (110) Pulse Ox 90 92 95 O2 Delivery Room Air Nasal Cannula Room Air Room Air O2 Flow Rate 4.0 08/01/17 08/02/17 08/02/17 08/02/17 23:00 02:58 07:40 08:00 Temp 97.9 97.9 96.0 97.9 97.9 96.0 Pulse 78 77 71 Resp 18 18 18 B/P (MAP) 138/88 (105) 124/86 (99) 149/70 (96) Pulse Ox 93 94 91 O2 Delivery Room Air Room Air Room Air Room Air 08/02/17 08/02/17 08/02/17 08:26 08:26 08:27 Pulse 71 71 71 B/P (MAP) 149/70 149/70 149/70 Intake and Output 08/01/17 08/01/17 08/02/17 15:00 23:00 07:00 Intake Total 600 ml 540 ml 450 ml Balance 600 ml 540 ml 450 ml CASTLE,NIAL K III DO Aug 02, 2017 10:09
[2017-08-02] MEDS ORDERED: POTASSIUM CHLORIDE 20 MEQ TABLET.ER. PO ONE (10:15)
[2017-08-02] MEDS ORDERED: WARFARIN 3 MG TABLET. PO ONE (16:00)
[2017-08-03 03:00] VITALS: BP 146/78
[2017-08-03 04:15] LABS: BASO % 1 % (0-3); EOS % 2 % (0-3); HEMATOCRIT 44.1 % (39.0-53.0); HEMOGLOBIN 14.1 g/dL (13.0-17.5); LYMPH % 35 % (24-48); MEAN CORPUSCULAR HEMOGLOBIN 28 pg (25-35); MEAN CORPUSCULAR HGB CONC 32 g/dL (31-37); MEAN CORPUSCULAR VOLUME 89 fL (79-100); MONO % 14 % (0-9); NEUT % 48 % (31-73); PLATELET COUNT 213 x10^3/uL (140-400); RED BLOOD COUNT 4.98 x10^6/uL (4.30-5.70); RED CELL DISTRIBUTION WIDTH 14.6 % (11.5-14.5); WHITE BLOOD COUNT 5.7 x10^3/uL (4.0-11.0)
[2017-08-03 04:41] LABS: ALBUMIN 2.3 g/dL (3.4-5.0); ALBUMIN/GLOBULIN RATIO 0.6 (1.0-1.7); CALCIUM 8.9 mg/dL (8.5-10.1); CREATININE 1.3 mg/dL (0.7-1.3); GFR 52.1; POTASSIUM 3.4 mmol/L (3.5-5.1); TOTAL BILIRUBIN 0.5 mg/dL (0.2-1.0); TOTAL PROTEIN 6.3 g/dL (6.4-8.2)
[2017-08-03 06:06] LABS: INR 1.8 (0.8-1.1); PROTHROMBIN TIME PATIENT 20.1 SEC (11.7-14.0)
[2017-08-03 07:00] VITALS: BP 145/76
[2017-08-03] MEDS: INSULIN ASPART 300 UNITS/3 ML INSULN.PEN SQ SCH ×2 (08:02→11:44)
[2017-08-03] MEDS: ASPIRIN ENTERIC COATED 81 MG TABLET.DR. PO SCH (08:04)
[2017-08-03] MEDS: DOXAZOSIN MESYLATE 4 MG TABLET. PO SCH (08:04)
[2017-08-03] MEDS: OSELTAMIVIR 30 MG CAPSULE PO SCH (08:04)
[2017-08-03] MEDS: METOPROLOL SUCC 24HR ER 25 MG TAB.ER.24H. PO SCH (08:04)
[2017-08-03] MEDS: amLODIPine BESYLATE 10 MG TABLET PO SCH (08:05)
[2017-08-03] MEDS: ALLOPURINOL 300 MG TABLET. PO SCH (08:05)
[2017-08-03] MEDS: INSULIN DETEMIR 300 UNITS/3 ML INSULN.PEN. SQ SCH (08:31)
[2017-08-03 10:37] VITALS: BP 158/80
--- NOTE | 2017-08-03 10:42 | PDOC3 ---
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 fib, hypertension, CAD, CHF on Lasix 80 once a day - all chronic stable Negative chest x-ray Final Diagnosis Problems Medical Problems: (1) Elevated CK Status: Acute (2) PNA (pneumonia) Status: Acute (3) Weakness Status: Acute Brief Hospital Course Allergies Allergies Coded Allergies Type Severity Reaction Last Updated Verified No Known Drug Allergies 08/07/13 No Vital Signs Vital Signs Date Time Temp Pulse Resp B/P (MAP) Pulse Ox O2 Delivery O2 Flow Rate FiO2 08/03/17 10:37 98.9 73 20 158/80 (106) 92 Nasal Cannula 2.0 98.9 Lab Results Laboratory Tests Test 08/01/17 11:21 08/01/17 16:17 08/01/17 20:15 08/01/17 20:21 Glucose (Fingerstick) 287 mg/dL (70-99) 215 mg/dL (70-99) 210 mg/dL (70-99) Prothrombin Time 18.5 SEC (11.7-14.0) Prothromb Time International Ratio 1.7 (0.8-1.1) Test 08/02/17 04:35 08/02/17 05:59 08/02/17 06:58 08/02/17 11:14 White Blood Count 5.0 x10^3/uL (4.0-11.0) Red Blood Count 5.19 x10^6/uL (4.30-5.70) Hemoglobin 14.8 g/dL (13.0-17.5) Hematocrit 45.1 % (39.0-53.0) Mean Corpuscular Volume 87 fL (79-100) Mean Corpuscular Hemoglobin 29 pg (25-35) Mean Corpuscular Hemoglobin Concent 33 g/dL (31-37) Red Cell Distribution Width 15.0 % (11.5-14.5) Platelet Count 202 x10^3/uL (140-400) Neutrophils (%) (Auto) 47 % (31-73) Lymphocytes (%) (Auto) 34 % (24-48) Monocytes (%) (Auto) 17 % (0-9) Eosinophils (%) (Auto) 2 % (0-3) Basophils (%) (Auto) 1 % (0-3) Neutrophils # (Auto) 2.3 x10^3uL (1.8-7.7) Lymphocytes # (Auto) 1.7 x10^3/uL (1.0-4.8) Monocytes # (Auto) 0.8 x10^3/uL (0.0-1.1) Eosinophils # (Auto) 0.1 x10^3/uL (0.0-0.7) Basophils # (Auto) 0.0 x10^3/uL (0.0-0.2) Prothrombin Time 18.1 SEC (11.7-14.0) Prothromb Time International Ratio 1.6 (0.8-1.1) Sodium Level 141 mmol/L (136-145) Potassium Level 3.2 mmol/L (3.5-5.1) Chloride Level 103 mmol/L (98-107) Carbon Dioxide Level 31 mmol/L (21-32) Anion Gap 7 (6-14) Blood Urea Nitrogen 32 mg/dL (8-26) Creatinine 1.5 mg/dL (0.7-1.3) Estimated GFR (Cockcroft-Gault) 44.2 BUN/Creatinine Ratio 21 (6-20) Glucose Level 94 mg/dL (70-99) Calcium Level 9.0 mg/dL (8.5-10.1) Total Bilirubin 0.5 mg/dL (0.2-1.0) Aspartate Amino Transf (AST/SGOT) 45 U/L (15-37) Alanine Aminotransferase (ALT/SGPT) 38 U/L (16-63) Alkaline Phosphatase 60 U/L (46-116) Total Protein 6.2 g/dL (6.4-8.2) Albumin 2.4 g/dL (3.4-5.0) Albumin/Globulin Ratio 0.6 (1.0-1.7) Glucose (Fingerstick) 64 mg/dL (70-99) 148 mg/dL (70-99) 230 mg/dL (70-99) Test 08/02/17 16:26 08/02/17 21:06 08/03/17 03:50 08/03/17 05:45 Glucose (Fingerstick) 190 mg/dL (70-99) 203 mg/dL (70-99) White Blood Count 5.7 x10^3/uL (4.0-11.0) Red Blood Count 4.98 x10^6/uL (4.30-5.70) Hemoglobin 14.1 g/dL (13.0-17.5) Hematocrit 44.1 % (39.0-53.0) Mean Corpuscular Volume 89 fL (79-100) Mean Corpuscular Hemoglobin 28 pg (25-35) Mean Corpuscular Hemoglobin Concent 32 g/dL (31-37) Red Cell Distribution Width 14.6 % (11.5-14.5) Platelet Count 213 x10^3/uL (140-400) Neutrophils (%) (Auto) 48 % (31-73) Lymphocytes (%) (Auto) 35 % (24-48) Monocytes (%) (Auto) 14 % (0-9) Eosinophils (%) (Auto) 2 % (0-3) Basophils (%) (Auto) 1 % (0-3) Neutrophils # (Auto) 2.7 x10^3uL (1.8-7.7) Lymphocytes # (Auto) 2.0 x10^3/uL (1.0-4.8) Monocytes # (Auto) 0.8 x10^3/uL (0.0-1.1) Eosinophils # (Auto) 0.1 x10^3/uL (0.0-0.7) Basophils # (Auto) 0.0 x10^3/uL (0.0-0.2) Sodium Level 142 mmol/L (136-145) Potassium Level 3.4 mmol/L (3.5-5.1) Chloride Level 105 mmol/L (98-107) Carbon Dioxide Level 29 mmol/L (21-32) Anion Gap 8 (6-14) Blood Urea Nitrogen 25 mg/dL (8-26) Creatinine 1.3 mg/dL (0.7-1.3) Estimated GFR (Cockcroft-Gault) 52.1 BUN/Creatinine Ratio 19 (6-20) Glucose Level 112 mg/dL (70-99) Calcium Level 8.9 mg/dL (8.5-10.1) Total Bilirubin 0.5 mg/dL (0.2-1.0) Aspartate Amino Transf (AST/SGOT) 36 U/L (15-37) Alanine Aminotransferase (ALT/SGPT) 38 U/L (16-63) Alkaline Phosphatase 61 U/L (46-116) Total Protein 6.3 g/dL (6.4-8.2) Albumin 2.3 g/dL (3.4-5.0) Albumin/Globulin Ratio 0.6 (1.0-1.7) Prothrombin Time 20.1 SEC (11.7-14.0) Prothromb Time International Ratio 1.8 (0.8-1.1) Test 08/03/17 06:51 Glucose (Fingerstick) 98 mg/dL (70-99) Laboratory Tests Test 08/02/17 11:14 08/02/17 16:26 08/02/17 21:06 08/03/17 03:50 Glucose (Fingerstick) 230 mg/dL (70-99) 190 mg/dL (70-99) 203 mg/dL (70-99) White Blood Count 5.7 x10^3/uL (4.0-11.0) Red Blood Count 4.98 x10^6/uL (4.30-5.70) Hemoglobin 14.1 g/dL (13.0-17.5) Hematocrit 44.1 % (39.0-53.0) Mean Corpuscular Volume 89 fL (79-100) Mean Corpuscular Hemoglobin 28 pg (25-35) Mean Corpuscular Hemoglobin Concent 32 g/dL (31-37) Red Cell Distribution Width 14.6 % (11.5-14.5) Platelet Count 213 x10^3/uL (140-400) Neutrophils (%) (Auto) 48 % (31-73) Lymphocytes (%) (Auto) 35 % (24-48) Monocytes (%) (Auto) 14 % (0-9) Eosinophils (%) (Auto) 2 % (0-3) Basophils (%) (Auto) 1 % (0-3) Neutrophils # (Auto) 2.7 x10^3uL (1.8-7.7) Lymphocytes # (Auto) 2.0 x10^3/uL (1.0-4.8) Monocytes # (Auto) 0.8 x10^3/uL (0.0-1.1) Eosinophils # (Auto) 0.1 x10^3/uL (0.0-0.7) Basophils # (Auto) 0.0 x10^3/uL (0.0-0.2) Sodium Level 142 mmol/L (136-145) Potassium Level 3.4 mmol/L (3.5-5.1) Chloride Level 105 mmol/L (98-107) Carbon Dioxide Level 29 mmol/L (21-32) Anion Gap 8 (6-14) Blood Urea Nitrogen 25 mg/dL (8-26) Creatinine 1.3 mg/dL (0.7-1.3) Estimated GFR (Cockcroft-Gault) 52.1 BUN/Creatinine Ratio 19 (6-20) Glucose Level 112 mg/dL (70-99) Calcium Level 8.9 mg/dL (8.5-10.1) Total Bilirubin 0.5 mg/dL (0.2-1.0) Aspartate Amino Transf (AST/SGOT) 36 U/L (15-37) Alanine Aminotransferase (ALT/SGPT) 38 U/L (16-63) Alkaline Phosphatase 61 U/L (46-116) Total Protein 6.3 g/dL (6.4-8.2) Albumin 2.3 g/dL (3.4-5.0) Albumin/Globulin Ratio 0.6 (1.0-1.7) Test 08/03/17 05:45 08/03/17 06:51 Prothrombin Time 20.1 SEC (11.7-14.0) Prothromb Time International Ratio 1.8 (0.8-1.1) Glucose (Fingerstick) 98 mg/dL (70-99) Brief Hospital Course Mr. Godinez is a 87 old male who came from home, was found crawling on the ground. Brought by EMS. Mild elevation of CPK 887 on admission, got mild IV hydration because of history of CHF and on Lasix at home. 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 Doing well clinically well. By the chart, the numbers are well. But unfortunately is deconditioned and hence needed SNU. Agrees to it HCR. But wants his to go with him. is currently admitted in in the same hospital under the care of another physician. Case discussed with social work. They will look at facility. Discharge disposition to SNU hopefully with Discharge time 31 minutes Discharge meds done continue all home medications. Yaw has completed the course Discharge Information Condition at Discharge: Improved, Stable Disposition/Orders: , Other (SNU) Scheduled Allopurinol (Allopurinol), 1 TAB PO DAILY, (Reported) Amlodipine Besylate (Amlodipine Besylate), 10 MG PO DAILY, (Reported) Atorvastatin Calcium (Atorvastatin Calcium), 10 MG PO HS, (Reported) Furosemide (Furosemide), 1 TAB PO DAILY, (Reported) Insulin Glargine,Hum.rec.anlog (Lantus Solostar), 80 UNIT SQ DAILY, (Reported) Metoprolol Succinate (Metoprolol Succinate ( Xl )), 1 TAB PO DAILY, (Reported) Warfarin Sodium (Warfarin Sodium), 1 TAB PO DAILY, (Reported) Miscellaneous Medications Aspirin (Aspirin Ec), 81 MG PO, (Reported) Atorvastatin Calcium (Atorvastatin Calcium), 10 MG PO, (Reported) Doxazosin Mesylate (Doxazosin Mesylate), 8 MG PO, (Reported) Discontinued Medications Diltiazem Hcl (Diltiazem 24HR Er), 120 MG PO, (Reported) Diphenhydramine Hcl (Diphenhydramine Hcl), 25 MG PO, (Reported) Triamterene/Hydrochlorothiazid (Triamterene-Hctz 37.5-25 Mg Cp), 1 EACH PO, ( Reported) JESÚS BELTRE MD Aug 03, 2017 10:42
--- NOTE | 2017-08-03 11:10 | PDOC ---
Infectious Disease Note Subjective Subjective Doing well. mild wheeze at times and occ sputum Still a little weak Eating well. + BM ROS ROS GEN: Denies fevers, chills, sweats HEENT: Denies blurred vision, sore throat CV: Denies chest pain GI: Denies n/v/d NEURO: Denies confusion, dizziness MSK: Denies weakness, joint pain/swelling Vital Sign Vital Signs Vital Signs Date Time Temp Pulse Resp B/P (MAP) Pulse Ox O2 Delivery O2 Flow Rate FiO2 08/03/17 10:37 98.9 73 20 158/80 (106) 92 Nasal Cannula 2.0 98.9 Physical Exam PHYSICAL EXAM GENERAL: NAD, Alert HEENT: PERRL, OC/OP -clear NECK: Supple, no JVD, no LN LUNGS: mild upper wheeze HEART: S1S2, no gallop, no murmur ABD: Soft, NT, no organomegaly, no rebound EXT: No edema, no cyanosis WINDOW/DISTRIBUTION CLERK: Alert, oriented x 3, no focal neurologic deficit SKIN: No rash IV: ok Labs Lab Laboratory Tests Test 08/02/17 11:14 08/02/17 16:26 08/02/17 21:06 08/03/17 03:50 Glucose (Fingerstick) 230 mg/dL (70-99) 190 mg/dL (70-99) 203 mg/dL (70-99) White Blood Count 5.7 x10^3/uL (4.0-11.0) Red Blood Count 4.98 x10^6/uL (4.30-5.70) Hemoglobin 14.1 g/dL (13.0-17.5) Hematocrit 44.1 % (39.0-53.0) Mean Corpuscular Volume 89 fL (79-100) Mean Corpuscular Hemoglobin 28 pg (25-35) Mean Corpuscular Hemoglobin Concent 32 g/dL (31-37) Red Cell Distribution Width 14.6 % (11.5-14.5) Platelet Count 213 x10^3/uL (140-400) Neutrophils (%) (Auto) 48 % (31-73) Lymphocytes (%) (Auto) 35 % (24-48) Monocytes (%) (Auto) 14 % (0-9) Eosinophils (%) (Auto) 2 % (0-3) Basophils (%) (Auto) 1 % (0-3) Neutrophils # (Auto) 2.7 x10^3uL (1.8-7.7) Lymphocytes # (Auto) 2.0 x10^3/uL (1.0-4.8) Monocytes # (Auto) 0.8 x10^3/uL (0.0-1.1) Eosinophils # (Auto) 0.1 x10^3/uL (0.0-0.7) Basophils # (Auto) 0.0 x10^3/uL (0.0-0.2) Sodium Level 142 mmol/L (136-145) Potassium Level 3.4 mmol/L (3.5-5.1) Chloride Level 105 mmol/L (98-107) Carbon Dioxide Level 29 mmol/L (21-32) Anion Gap 8 (6-14) Blood Urea Nitrogen 25 mg/dL (8-26) Creatinine 1.3 mg/dL (0.7-1.3) Estimated GFR (Cockcroft-Gault) 52.1 BUN/Creatinine Ratio 19 (6-20) Glucose Level 112 mg/dL (70-99) Calcium Level 8.9 mg/dL (8.5-10.1) Total Bilirubin 0.5 mg/dL (0.2-1.0) Aspartate Amino Transf (AST/SGOT) 36 U/L (15-37) Alanine Aminotransferase (ALT/SGPT) 38 U/L (16-63) Alkaline Phosphatase 61 U/L (46-116) Total Protein 6.3 g/dL (6.4-8.2) Albumin 2.3 g/dL (3.4-5.0) Albumin/Globulin Ratio 0.6 (1.0-1.7) Test 08/03/17 05:45 08/03/17 06:51 Prothrombin Time 20.1 SEC (11.7-14.0) Prothromb Time International Ratio 1.8 (0.8-1.1) Glucose (Fingerstick) 98 mg/dL (70-99) Objective Assessment Influenza A -treated Lactic acidosis, improved Generalized weakness - improving s/p fall Rhabdomyolysis COPD DM Plan Plan of Care No need for further abx ID to sign off GEOVANNY SALCEDO MD Aug 03, 2017 11:10
[2017-08-03 14:43] VITALS: BP 124/56
[2017-08-03] MEDS ORDERED: WARFARIN 3 MG TABLET. PO ONE (16:00)
== END 2017-08-03 16:14 | DRG 871 ==
LOC: ER 04:53 → 5 SOUTH 07:33
PROVIDERS: ADMIT Internal Medicine; ATTEND Internal Medicine
DX: A41.9 Sepsis, unspecified organism (principal); E43 Unspecified severe protein-calorie malnutrition; I13.0 Hypertensive heart and chronic kidney disease with heart failure and stage 1 through stage 4 chronic kidney disease, or unspecified chronic kidney disease; J10.00 Influenza due to other identified influenza virus with unspecified type of pneumonia; E11.22 Type 2 diabetes mellitus with diabetic chronic kidney disease; E11.42 Type 2 diabetes mellitus with diabetic polyneuropathy; I48.91 Unspecified atrial fibrillation; I50.9 Heart failure, unspecified; J44.0 Chronic obstructive pulmonary disease with (acute) lower respiratory infection; M62.82 Rhabdomyolysis; W18.39XA Other fall on same level, initial encounter; E78.5 Hyperlipidemia, unspecified; E87.6 Hypokalemia; I25.10 Atherosclerotic heart disease of native coronary artery without angina pectoris; F32.9 Major depressive disorder, single episode, unspecified; F41.9 Anxiety disorder, unspecified; M19.90 Unspecified osteoarthritis, unspecified site; J10.1 Influenza due to other identified influenza virus with other respiratory manifestations; M10.9 Gout, unspecified; N18.9 Chronic kidney disease, unspecified; N40.0 Benign prostatic hyperplasia without lower urinary tract symptoms; Z79.01 Long term (current) use of anticoagulants; Z79.4 Long term (current) use of insulin; Z80.3 Family history of malignant neoplasm of breast; Z82.3 Family history of stroke; Z82.49 Family history of ischemic heart disease and other diseases of the circulatory system; Z85.46 Personal history of malignant neoplasm of prostate; Z87.891 Personal history of nicotine dependence; Z95.0 Presence of cardiac pacemaker; Z95.810 Presence of automatic (implantable) cardiac defibrillator; Z87.81 Personal history of (healed) traumatic fracture; Z68.31 Body mass index [BMI] 31.0-31.9, adult; Z98.49 Cataract extraction status, unspecified eye; Z90.49 Acquired absence of other specified parts of digestive tract; Y93.89 Activity, other specified; Y92.89 Other specified places as the place of occurrence of the external cause; Y99.8 Other external cause status
CPT/HCPCS: 36415; 70450; 71010; 73030; 80053; 81001; 82550; 82962; 83605; 83880; 84484; 85025; 85610; 87040; 87804; 93005; 94640; 96361; 96365; J0456; J0690; J1815; J7030; J7050; J7620; Q0163; 97110; 97116; 99285-25

== ENCOUNTER → 2019-01-03 | Outpatient (CLI) | payer MEDICARE ==
[~2019-01-03] MED LIST changes: +ALLO300T PO; +AMLO10TA8 PO; +FURO80TA3 PO; +METO-239 PO; -PIOG15TA2 PO; +PIOG15TA63 PO; -WARF2TAB7 PO; +WARF2TAB96 PO; +WARF3TAB50 PO
--- NOTE | 2019-01-03 11:43 | RAD ---
MR#: [id number] Date of Study: 01/03/2019 Ordering Physician: ARASH BROWN, Referring Physician: ARASH BROWN, Tech: Dylan Duarte MBA, RDMS, RVT, RDCS, RTR APPROVED REPORT Patient Location : OUT-PATIENT Indications Lower Extremity Edema : Bilateral Findings Grayscale images of the saphenofemoral junctions do not reveal any obvious evidence of thrombus. The right great saphenous vein measures 5.9 mm the left great saphenous vein measures 5.1 mm. No evidence of reflux is noted throughout the venous course. The bilateral lesser saphenous veins do not show any evidence of reflux. Critical Notification Critical Value: No <Conclusion> 1. Negative for reflux in the bilateral greater and lesser saphenous veins Signed by : Jeremie Stephens, Electronically Approved : 01/03/2019 11:42:28
== END | disposition home or self-care (01) ==
LOC: US 10:42
PROVIDERS: ATTEND Internal Medicine Cardiovascular Disease
DX: R60.0 Localized edema (principal)
CPT/HCPCS: 93970